=== PATIENT | male | born 1955 | race Caucasian/White ===

== ENCOUNTER 2018-11-02 14:20 | Emergency (ER) | payer OTHER, MEDICARE ==
--- OUTSIDE RECORDS SUMMARY | 2018-11-02 14:27 | XMS REPORT ---
:1955 Author Organization [facility] Address [address] [place] [address] Care Team Providers Name Role Phone Unavailable Unavailable Unavailable Payers Payer Name Policy Type Policy Number Effective Date Expiration Date Problems This patient has no known problems. Allergies, Adverse Reactions, Alerts Allergy Allergy Status Severity Reaction(s) Onset Inactive Treating Comments Name Type Date Date Clinician No Known DA Active U 2018-10 Allergies -18 00:00:0 0 Medications This patient has no known medications. Results Test Description Test Time Test Comments Text Results Atomic Results Result Comments - XR CHEST 1 V 2018-10-31 09:46:00 Name: BOO MARTIN [facility] : 1955 Age/S: 63 / M [id number] Unit #: [id number] Loc: [place] [address] Phys: Kai Tamayo MD Acct: [id number] Dis Date: Status: [facility] PHONE #: [phone] Exam Date: 10/31/2018 0933 FAX #: Reason: PRE-OP EXAMS: CPT: [id number] XR CHEST 1 V 23256 Fluoro Time: DAP (Gy m2): Air Kerma (mGy): Chest Radiograph History: PRE-OP Comparison: None at this time Location: R16 A single frontal view of the chest is submitted. The heart is within normal limits in size. Pulmonary vasculature is unremarkable. The visualized lung hoffmann appear to be free of disease. The bones appear unremarkable. IMPRESSION: There is no radiographic evidence of acute cardiopulmonary disease. at 0946 Reported and signed by: Nazario Meraz M.D. CC: Jase Estrada MD; Kai Tamayo MD PAGE 1 Signed Report Name: BOO MARTIN [place] : 1955 Age/S: 63 / M [id number] Unit #: [id number] Loc: [place] [address] Phys: Kai Tamayo MD Acct: [id number] Dis Date: Status: REG [facility] [place] PHONE #: [phone] Exam Date: 10/31/2018 0933 FAX #: Reason: PRE-OP EXAMS: CPT: [id number] XR CHEST 1 V 44405 Fluoro Time: DAP (Gy m2): Air Kerma (mGy): <Continued> Technologist: Harriet Neff, RT(R) Trnscb Date/Time: 10/31/2018 (0946) [email or web address] Orig Print D/T: S: 10/31/2018 (0949) PAGE 2 Signed Report
--- NOTE | 2018-11-02 15:46 | ER ---
Nurse's Notes [facility] Name: Nic Ewing Age: 63 yrs Sex: Male : 1955 Arrival Date: 11/02/2018 Time: 14:28 Bed 20 Private MD: Jase Estrada Diagnosis: Mechanical complication of urinary (indwelling) catheter Presentation: 11/02 14:32 Presenting complaint: Blood in catheter this morning, decreased urinary output this hb afternoon. Pt is 3 days s/p hernia and bladder sx. Transition of care: patient was not received from another setting of care. Onset of symptoms was November 02, 2018. Risk Assessment: Do you want to hurt yourself or someone else? Patient reports no desire to harm self or others. Care prior to arrival: None. 14:32 Method Of Arrival: Ambulatory hb 14:32 Acuity: ALMA 3 hb 14:54 Initial Sepsis Screen: Does the patient meet any 2 criteria? No. Patient's initial tw2 sepsis screen is negative. Does the patient have a suspected source of infection? No. Patient's initial sepsis screen is negative. Historical: - Allergies: 14:33 No Known Allergies; hb - Immunization history:: Adult Immunizations up to date. - Social history:: Smoking status: Patient/guardian denies using tobacco. - Ebola Screening: : No symptoms or risks identified at this time. Screenin:54 Abuse screen: Denies threats or abuse. Nutritional screening: No deficits noted. tw2 Tuberculosis screening: No symptoms or risk factors identified. Fall Risk Secondary diagnosis (15 points) impaired mobility. Assessment: 14:35 General: Appears in no apparent distress. slender, Behavior is calm, cooperative, tw2 appropriate for age. Pain: Denies pain. Neuro: Level of Consciousness is awake, alert, obeys commands, Oriented to person, place, time, situation. Cardiovascular: Patient's skin is warm and dry. Respiratory: Airway is patent Respiratory effort is even, unlabored, Respiratory pattern is regular, symmetrical. : man catheter in place with drainage bag. 15:57 Reassessment: Patient appears in no apparent distress at this time. No changes from tw2 previously documented assessment. Patient and/or family updated on plan of care and expected duration. Pain level reassessed. Patient is alert, oriented x 3, equal unlabored respirations, skin warm/dry/pink. Vital Signs: 14:33 BP 161 / 83; Pulse 72; Resp 16; Temp 97.9; Pulse Ox 98% ; Weight 81.65 kg; Height 5 ft. hb 10 in. (177.80 cm); Pain 6/10; 15:57 BP 148 / 84; Pulse 61; Resp 18; Pulse Ox 98% on R/A; tw2 14:33 Body Mass Index 25.83 (81.65 kg, 177.80 cm) hb ED Course: 14:28 Patient arrived in ED. mr 14:28 Jase Estrada MD is Private Physician. mr 14:32 Triage completed. hb 14:33 Arm band placed on right wrist. hb 14:35 Bed in low position. Call light in reach. Side rails up X2. patrol commander on. Pulse tw2 ox on. NIBP on. 14:54 Briseyda Jensen RN is Primary Nurse. tw2 15:09 Florencio Rice PA is PHCP. jr8 15:09 Daniel Bray MD is Attending Physician. jr8 15:[address] man catheter with 10 ml ns, pts urine started flowing into tw2 drainage container at this time, provider at bedside. 15:58 No provider procedures requiring assistance completed. Patient did not have IV access tw2 during this emergency room visit. Administered Medications: No medications were administered Output: 15:58 Urine: 250ml (Man); Total: 250ml. tw2 Outcome: 15:45 Discharge ordered by . jr8 15:58 Discharged to home ambulatory. tw2 15:58 Condition: stable 15:58 Discharge instructions given to patient, Instructed on discharge instructions, follow up and referral plans. man care and drainage Demonstrated understanding of instructions, follow-up care. 15:59 Patient left the ED. tw2 Signatures: Magaly Feng mr Florencio Rice PA PA jr8 Gabriella Acuña RN RN Briseyda Jensen RN RN tw2
--- NOTE | 2018-11-02 15:46 | EDPHYS ---
Physician Documentation [facility] Name: Nic Ewing Age: 63 yrs Sex: Male : 1955 Arrival Date: 11/02/2018 Time: 14:28 Bed 20 Private MD: Jase Estrada ED Physician Daniel Bray HPI: 11/02 15:28 This 63 yrs old Male presents to ER via Ambulatory with complaints of Blood jr8 In Catheter. 15:28 The patient presents with a Man catheter problem, is not draining. Onset: The jr8 symptoms/episode began/occurred acutely, 3 hour(s) ago. Modifying factors: The symptoms are alleviated by nothing, the symptoms are aggravated by nothing. Associated signs and symptoms: Pertinent positives: hematuria, catheter not draining, Pertinent negatives: abdominal pain, constipation, diarrhea, fever, nausea, vomiting. Severity of symptoms: At their worst the symptoms were mild, in the emergency department the symptoms are unchanged. The patient has not experienced similar symptoms in the past. The patient has not recently seen a physician. Patient had hernia repair surgery Wednesday at [facility], which caused injury to bladder that was sutured and man catheter was placed at that time. Patient reports blood in catheter since surgery, now not draining x 2-3 hours. Reports suprapubic pressure and fullness but denies abdominal pain, N/V/D, or fever. Historical: - Allergies: 14:33 No Known Allergies; hb - Immunization history:: Adult Immunizations up to date. - Social history:: Smoking status: Patient/guardian denies using tobacco. - Ebola Screening: : No symptoms or risks identified at this time. ROS: 15:28 Constitutional: Negative for fever, chills, and weight loss, Cardiovascular: Negative jr8 for chest pain, palpitations, and edema, Respiratory: Negative for shortness of breath, cough, wheezing, and pleuritic chest pain, Back: Negative for injury and pain, MS/Extremity: Negative for injury and deformity, Skin: Negative for injury, rash, and discoloration, Neuro: Negative for headache, weakness, numbness, tingling, and seizure. 15:28 Abdomen/GI: Positive for constipation, Negative for abdominal pain, nausea, vomiting, and diarrhea. 15:28 : Positive for urinary retention, suprapubic fullness, Negative for flank pain, penile discharge, penile pain, testicular pain Exam: 15:28 Constitutional: This is a well developed, well nourished patient who is awake, alert, jr8 and in no acute distress. Cardiovascular: Regular rate and rhythm with a normal S1 and S2. No gallops, murmurs, or rubs. Normal PMI, no JVD. No pulse deficits. Respiratory: Lungs have equal breath sounds bilaterally, clear to auscultation and percussion. No rales, rhonchi or wheezes noted. No increased work of breathing, no retractions or nasal flaring. Back: No spinal tenderness. No costovertebral tenderness. Full range of motion. Skin: Warm, dry with normal turgor. Normal color with no rashes, no lesions, and no evidence of cellulitis. MS/ Extremity: Pulses equal, no cyanosis. Neurovascular intact. Full, normal range of motion. Neuro: Awake and alert, GCS 15, oriented to person, place, time, and situation. Cranial nerves II-XII grossly intact. Motor strength 5/5 in all extremities. Sensory grossly intact. Cerebellar exam normal. Normal gait. 15:28 Abdomen/GI: Inspection: abdomen appears normal, lap abdominal incisions closed with surgical glue, well appearing, no erythema or drainage, Bowel sounds: normal, Palpation: abdomen is soft and non-tender, in all quadrants, mild bladder distension. 15:28 : CVA tenderness, is absent, Male external genitalia: normal, Bladder: distension, that is mild, a man is noted, to gravity drainage, not draining. Vital Signs: 14:33 BP 161 / 83; Pulse 72; Resp 16; Temp 97.9; Pulse Ox 98% ; Weight 81.65 kg; Height 5 ft. hb 10 in. (177.80 cm); Pain 6/10; 15:57 BP 148 / 84; Pulse 61; Resp 18; Pulse Ox 98% on R/A; tw2 14:33 Body Mass Index 25.83 (81.65 kg, 177.80 cm) hb Procedures: 15:40 Bladder irrigated via Man with 10 cc normal saline returned yellow urine Patient jr8 tolerated well. MDM: 15:09 Patient medically screened. jr8 15:40 Differential diagnosis: urinary retention, Man catheter problem. Data reviewed: vital jr8 signs, nurses notes, and as a result, I will discharge patient. Data interpreted: Pulse oximetry: on room air is 99 %. Interpretation: normal. Counseling: I had a detailed discussion with the patient and/or guardian regarding: the historical points, exam findings, and any diagnostic results supporting the discharge/admit diagnosis, the need for outpatient follow up, a general surgeon. Response to treatment: the patient's symptoms have resolved after treatment, man draining well, and as a result, I will discharge patient. ED course: Following irrigation, man catheter draining clear yellow urine with small amount of tiny clots, patient reports relief. Patient scheduled to follow up with surgeon Wednesday, instructed to follow up as scheduled and return to ER PRN for any additional complications. 11/02 15:09 Order name: Bladder Scanner; Complete Time: 15:31 jr8 11/02 15:32 Order name: Misc. Order: irrigate man; Complete Time: 15:40 tw2 Administered Medications: No medications were administered Disposition: 17:21 Co-signature as Attending Physician, Daniel Bray MD. rn Disposition: 11/02/18 15:45 Discharged to Home. Impression: Mechanical complication of urinary (indwelling) catheter. - Condition is Stable. - Discharge Instructions: Man Catheter Care, Adult. - Medication Reconciliation Form, Thank You Letter, Antibiotic Education, Prescription Opioid Use form. - Follow up: Private Physician; When: 2 - 3 days; Reason: Recheck today's complaints, Continuance of care, Re-evaluation by your physician. - Problem is new. - Symptoms are resolved. Signatures: Daniel Bray MD MD rn Roszak, Josh, PA PA jr8 Gabriella Acuña RN RN hb Wise, Tara, RN RN tw2 Corrections: (The following items were deleted from the chart) 15:59 15:45 11/02/2018 15:45 Discharged to Home. Impression: Mechanical complication of tw2 urinary (indwelling) catheter. Condition is Stable. Forms are Medication Reconciliation Form, Thank You Letter, Antibiotic Education, Prescription Opioid Use. Follow up: Private Physician; When: 2 - 3 days; Reason: Recheck today's complaints, Continuance of care, Re-evaluation by your physician. Problem is new. Symptoms are resolved. jr8
== END 2018-11-02 15:59 | disposition home or self-care (01) ==
LOC: ER 14:20
DX: T83.091A Other mechanical complication of indwelling urethral catheter, initial encounter (principal)
CPT/HCPCS: 51700; 99284

== ENCOUNTER 2018-11-04 21:23 | Emergency (ER) | payer OTHER, MEDICARE ==
--- NOTE | 2018-11-04 23:35 | ER ---
Nurse's Notes [facility] Name: Nic Ewing Age: 63 yrs Sex: Male : 1955 Arrival Date: 11/04/2018 Time: 21: Bed 30 Private MD: Jase Estrada Diagnosis: Essential (primary) hypertension Presentation: 11/04 21:27 Presenting complaint: Patient states: He was at home and started to feel light headed, aj1 so he checked his blood pressure and it was 196/107. Reports that he had a hernia repair on Wednesday and they his bladder was lacerated, so he has a catheter. Reports he was seen here 2 days ago for blood in his urine but that has resolved now. Denies pain. Transition of care: patient was not received from another setting of care. Onset of symptoms was November 04, 2018. Risk Assessment: Do you want to hurt yourself or someone else? Patient reports no desire to harm self or others. Initial Sepsis Screen: Does the patient meet any 2 criteria? No. Patient's initial sepsis screen is negative. Does the patient have a suspected source of infection? No. Patient's initial sepsis screen is negative. Care prior to arrival: None. 21:27 Method Of Arrival: Ambulatory aj1 21:27 Acuity: ALMA 3 aj1 Triage Assessment: 21:30 General: Appears in no apparent distress. comfortable, Behavior is calm, cooperative, aj1 appropriate for age. Pain: Denies pain. Neuro: Level of Consciousness is awake, alert, obeys commands, Oriented to person, place, time, situation. Cardiovascular: Patient's skin is warm and dry. Respiratory: Airway is patent Respiratory effort is even, unlabored, Respiratory pattern is regular, symmetrical. Historical: - Allergies: 21:30 No Known Allergies; aj1 - Home Meds: 21:30 Tylenol #3 Oral [Active]; Motrin Oral [Active]; aj1 - PMHx: 21:30 None; aj1 - PSHx: 21:30 Hernia repair; aj1 - Immunization history:: Flu vaccine is up to date. - Social history:: Smoking status: Patient/guardian denies using tobacco. - Ebola Screening: : Patient denies travel to an Ebola-affected area in the 21 days before illness onset. Screenin:40 Abuse screen: Denies threats or abuse. Denies injuries from another. Nutritional ca1 screening: No deficits noted. Tuberculosis screening: No symptoms or risk factors identified. Fall Risk None identified. Assessment: 21:40 General: Appears in no apparent distress. comfortable, Behavior is calm, cooperative, ca1 appropriate for age. Pain: Denies pain. Neuro: Level of Consciousness is awake, alert, obeys commands, Oriented to person, place, time, situation. Cardiovascular: Heart tones S1 S2 present Capillary refill < 3 seconds Patient's skin is warm and dry. Respiratory: Airway is patent Respiratory effort is even, unlabored, Respiratory pattern is regular, symmetrical, Breath sounds are clear bilaterally. GI: Abdomen is round non-distended, Bowel sounds present X 4 quads. Abd is soft and non tender X 4 quads. : Lopez in place to gravity drainage Urine is cloudy. EENT: No deficits noted. No signs and/or symptoms were reported regarding the EENT system. Derm: Skin is intact, is healthy with good turgor, Skin is pink, warm \T\ dry. Musculoskeletal: Circulation, motion, and sensation intact. Capillary refill < 3 seconds, Range of motion: intact in all extremities. 22:43 Reassessment: Bladder scanned. Notified provider. ca1 22:46 Reassessment: Patient appears in no apparent distress at this time. Patient and/or ca1 family updated on plan of care and expected duration. Pain level reassessed. Patient is alert, oriented x 3, equal unlabored respirations, skin warm/dry/pink. 23:14 Reassessment: Patient appears in no apparent distress at this time. Patient is alert, ca1 oriented x 3, equal unlabored respirations, skin warm/dry/pink. Bladder Irrigation done. Pt tolerated well. Vital Signs: 21:30 BP 163 / 98; Pulse 59; Resp 18; Temp 97.8; Pulse Ox 100% on R/A; Weight 81.65 kg (R); aj1 Height 5 ft. 10 in. (177.80 cm) (R); Pain 0/10; 22:46 BP 146 / 93; Pulse 64; Resp 16 S; Pulse Ox 98% on R/A; ca1 23:32 BP 163 / 93; Pulse 62; Resp 17 S; Pulse Ox 100% on R/A; ca1 23:49 BP 138 / 91; Pulse 66; Resp 16; Temp 98; Pulse Ox 99% on R/A; rv 21:30 Body Mass Index 25.83 (81.65 kg, 177.80 cm) aj ED Course: 21:26 Patient arrived in ED. mr 21:28 Jase Estrada MD is Private Physician. mr 21:29 Triage completed. aj1 21:30 Arm band placed on Patient placed in an exam room. aj1 21:33 Douglas Amos NP is PHCP. pm1 21:33 Daniel Bray MD is Attending Physician. pm1 21:40 Patient has correct armband on for positive identification. Bed in low position. Call ca1 light in reach. Side rails up X 1. Pulse ox on. NIBP on. Warm blanket given. 21:40 No provider procedures requiring assistance completed. ca1 22:20 Samantha Rubio, MARICRUZ is Primary Nurse. ca1 23:48 Patient did not have IV access during this emergency room visit. Bladder irrigated via rv Lopez with 1 liter normal saline returned clear fluid Patient tolerated well. Administered Medications: No medications were administered Outcome: 23:34 Discharge ordered by . pm1 23:49 Discharged to home ambulatory. rv 23:49 Condition: good 23:49 Discharge instructions given to patient, Instructed on discharge instructions, follow up and referral plans. Demonstrated understanding of instructions, follow-up care. 23:50 Patient left the ED. rv Signatures: Jo Ann Marcelo, RN RN aj1 Magaly Feng mr Douglas Amos, LOYD MANAGER [employer] pm1 Carlo Wolfe RN RN rv Samantha uRbio RN RN ca1
--- NOTE | 2018-11-04 23:35 | EDPHYS ---
Physician Documentation [facility] Name: Nic Ewing Age: 63 yrs Sex: Male : 1955 Arrival Date: 11/04/2018 Time: 21:26 Bed 30 Private MD: Jase Estrada ED Physician Daniel Bray HPI: 11/04 22:10 This 63 yrs old Male presents to ER via Ambulatory with complaints of High pm1 Blood Pressure. 22:10 The patient has elevated blood pressure and discovered this at home, with a home pm1 device. Onset: The symptoms/episode began/occurred today. Associated signs and symptoms: Pertinent positives: headache, Pertinent negatives: chest pain, nausea, vomiting. Severity of symptoms: in the emergency department the blood pressure is improved. The patient has not experienced similar symptoms in the past. The patient has been recently seen by a physician: Had hernia repair with accidental laceration of bladder. Patient currently has a man catheter. Patient is concerned that there might be a urinary tract infection because of possible decrease in flow. No abdominal pain or fever. Historical: - Allergies: 21:30 No Known Allergies; aj1 - Home Meds: 21:30 Tylenol #3 Oral [Active]; Motrin Oral [Active]; aj1 - PMHx: 21:30 None; aj1 - PSHx: 21:30 Hernia repair; aj1 - Immunization history:: Flu vaccine is up to date. - Social history:: Smoking status: Patient/guardian denies using tobacco. - Ebola Screening: : Patient denies travel to an Ebola-affected area in the 21 days before illness onset. ROS: 22:10 Constitutional: Negative for fever, chills, and weight loss, Eyes: Negative for injury, pm1 pain, redness, and discharge, ENT: Negative for injury, pain, and discharge, Neck: Negative for injury, pain, and swelling, Cardiovascular: Negative for chest pain, palpitations, and edema, Respiratory: Negative for shortness of breath, cough, wheezing, and pleuritic chest pain, Abdomen/GI: Negative for abdominal pain, nausea, vomiting, diarrhea, and constipation, Back: Negative for injury and pain, : Negative for injury, bleeding, discharge, and swelling, MS/Extremity: Negative for injury and deformity, Skin: Negative for injury, rash, and discoloration, Neuro: Negative for headache, weakness, numbness, tingling, and seizure. Exam: 22:10 Constitutional: This is a well developed, well nourished patient who is awake, alert, pm1 and in no acute distress. Head/Face: Normocephalic, atraumatic. Neck: Trachea midline, no thyromegaly or masses palpated, and no cervical lymphadenopathy. Supple, full range of motion without nuchal rigidity, or vertebral point tenderness. No Meningismus. Chest/axilla: Normal chest wall appearance and motion. Nontender with no deformity. No lesions are appreciated. Cardiovascular: Regular rate and rhythm with a normal S1 and S2. No gallops, murmurs, or rubs. Normal PMI, no JVD. No pulse deficits. Respiratory: Lungs have equal breath sounds bilaterally, clear to auscultation and percussion. No rales, rhonchi or wheezes noted. No increased work of breathing, no retractions or nasal flaring. Abdomen/GI: Soft, non-tender, with normal bowel sounds. No distension or tympany. No guarding or rebound. No evidence of tenderness throughout. Back: No spinal tenderness. No costovertebral tenderness. Full range of motion. Skin: Warm, dry with normal turgor. Normal color with no rashes, no lesions, and no evidence of cellulitis. MS/ Extremity: Pulses equal, no cyanosis. Neurovascular intact. Full, normal range of motion. 22:10 Neuro: Orientation: is normal, Motor: is normal, moves all fours. Vital Signs: 21:30 BP 163 / 98; Pulse 59; Resp 18; Temp 97.8; Pulse Ox 100% on R/A; Weight 81.65 kg (R); aj1 Height 5 ft. 10 in. (177.80 cm) (R); Pain 0/10; 22:46 BP 146 / 93; Pulse 64; Resp 16 S; Pulse Ox 98% on R/A; ca1 23:32 BP 163 / 93; Pulse 62; Resp 17 S; Pulse Ox 100% on R/A; ca1 23:49 BP 138 / 91; Pulse 66; Resp 16; Temp 98; Pulse Ox 99% on R/A; rv 21:30 Body Mass Index 25.83 (81.65 kg, 177.80 rosalina) aj1 MDM: 21:48 Patient medically screened. pm1 22:10 ED course: Patient states that he is no longer concerned about his blood pressure. He pm1 is concerned that he might have a urinary tract infection because he feels like the urine is not flowing as well from his catheter. 22:10 ED course: Bladder scanner 0 mL per nurse. No obstruction present. pm1 23:33 Data reviewed: vital signs. Data interpreted: Pulse oximetry: on room air is 100 %. pm1 Interpretation: normal. Counseling: I had a detailed discussion with the patient and/or guardian regarding: the historical points, exam findings, and any diagnostic results supporting the discharge/admit diagnosis, lab results, the need for outpatient follow up, to return to the emergency department if symptoms worsen or persist or if there are any questions or concerns that arise at home. 11/04 23:28 Order name: Urine Dipstick--Ancillary (enter results) [facility] 11/04 23:29 Order name: Urine Dipstick-Ancillary; Complete Time: 01:31 EDIN 11/04 22:10 Order name: Bladder Scanner; Complete Time: 22:34 pm1 11/04 22:10 Order name: Misc. Order: Irrigate of bladder; Complete Time: 23:30 pm1 11/04 22:26 Order name: Urine Dipstick-Ancillary (obtain specimen); Complete Time: 23:30 pm1 Administered Medications: No medications were administered Disposition: 11/05 00:02 Co-signature as Attending Physician, Daniel Bray MD. rn Disposition: 11/04/18 23:34 Discharged to Home. Impression: Essential (primary) hypertension. - Condition is Stable. - Discharge Instructions: Hypertension, How to Take Your Blood Pressure, Ziqt-ra-Ozoe, DASH Eating Plan, Managing Your Hypertension. - Medication Reconciliation Form, Thank You Letter, Antibiotic Education, Prescription Opioid Use form. - Follow up: Emergency Department; When: As needed; Reason: Worsening of condition. Follow up: Private Physician; When: 2 - 3 days; Reason: Recheck today's complaints, Continuance of care, Re-evaluation by your physician. - Problem is new. - Symptoms have improved. Signatures: Dispatcher [employer] [facility] Jo Ann Marcelo RN RN aj1 Daniel Bray MD MD rn Marinas, Patrick, LOYD TRUCK HOPPER pm1 Aiden, Carlo, RN RN rv Corrections: (The following items were deleted from the chart) 11/04 23:50 23:34 11/04/2018 23:34 Discharged to Home. Impression: Essential (primary) rv hypertension. Condition is Stable. Forms are Medication Reconciliation Form, Thank You Letter, Antibiotic Education, Prescription Opioid Use. Follow up: Emergency Department; When: As needed; Reason: Worsening of condition. Follow up: Private Physician; When: 2 - 3 days; Reason: Recheck today's complaints, Continuance of care, Re-evaluation by your physician. Problem is new. Symptoms have improved. pm1
[2018-11-04 23:41] LABS: Urine Blood 2+ (NEG); Urine Glucose NEGATIVE (NEG); Urine Protein NEGATIVE (NEG); Urine Specific Gravity 1.015 (1.005-1.030); Urine pH 5.5 (5.0-7.0)
== END 2018-11-04 23:50 | disposition home or self-care (01) ==
LOC: ER 21:23
DX: I10 Essential (primary) hypertension (principal)
CPT/HCPCS: 51700; 81003; 99284

== ENCOUNTER 2019-07-01 14:02 | Emergency (ER) | payer OTHER, MEDICARE ==
--- OUTSIDE RECORDS SUMMARY | 2019-07-01 14:05 | XMS REPORT ---
:1955 [facility] [address] [place] [address] Care Team Providers Name Role Phone Unavailable [...] Results Atomic Results Result Comments - XR CYSTOURETHRO VOIDING 2018-11-07 11:41:00 Name: BOO MARTIN [facility] : 1955 Age/S: 63 / M [address] [facility] Unit #: [id number] Loc: [place] [address] Phys: Kai Tamayo MD Acct: [id number] Dis Date: Status: REG CLI PHONE #: [phone] Exam Date: 11/07/2018 1110 FAX #: Reason: UNSP COMPLICATION OF PROCEDURE EXAMS: CPT: [id number] XR CYSTOURETHRO VOIDING [id number] Fluoro Time: 24 DAP (Gy m2): Air Kerma (mGy): 17.95 Examination: VCUG Location code: S17 Comparison: None Discussion: Clinical history is remarkable for bladder injury. Cysto-Conray was instilled under gravity dependent method through the patient's existing Lopez catheter. There is adequate opacification of the bladder, there is no evidence of extravasation. No vesicoureteral reflux present. At the end of the procedure, the Lopez catheter was removed. I was present during this procedure for a total of 10 minutes. 24 seconds fluoroscopic time utilized. Impression: No evidence of bladder extravasation, Lopez catheter was removed following the procedure. at 1141 Reported and signed by: Malick Abreu M.D. CC: Jase Estrada MD; Kai Tamayo MD PAGE 1 Signed Report Name: BOO MARTIN [place] : 1955 Age/S: 63 / M [address] [address] Unit #: [id number] Loc: [place] [address] Phys: Kai Tamayo MD Acct: [id number] Dis Date: Status: REG CLI PHONE #: [phone] Exam Date: 11/07/2018 1110 FAX #: Reason: UNSP COMPLICATION OF PROCEDURE EXAMS: CPT: [id number] XR CYSTOURETHRO VOIDING [id number] Fluoro Time: 24 DAP (Gy m2): Air Kerma (mGy): 17.95 <Continued> Technologist: Joni Romo, RT(R)(CT); ... Trnscb Date/Time: 11/07/2018 (1141) [email or web address] Orig Print D/T: S: 11/07/2018 (1144) PAGE 2 Signed Report - XR CHEST 1 V 2018-10-31 09:46:00 Name: BOO MARTIN [place] : 1955 Age/S: 63 / M [address] [address] Unit #: [id number] Loc: [place] [address] Phys: Kai Tamayo MD Acct: [id number] Dis Date: Status: REG SD PHONE #: [phone] Exam Date: 10/31/2018 0933 FAX #: Reason: PRE-OP EXAMS: CPT: [id number] XR CHEST 1 V 44576 Fluoro Time: DAP (Gy m2): Air Kerma [...] PAGE 1 Signed Report Name: BOO MARTIN : 1955 Age/S: 63 / M [address] [address] Unit #: [id number] Loc: [place] [address] Phys: Kai Tamayo MD Acct: [id number] Dis Date: Status: REG [facility] PHONE #: [phone] Exam Date: 10/31/2018 0933 FAX #: Reason: PRE-OP EXAMS: CPT: [id number] XR CHEST 1 V 37588 Fluoro Time: DAP (Gy m2): Air Kerma (mGy): <Continued> Technologist: Harriet Neff RT(R) Trnscb Date/Time: 10/31/2018 (945) [email or web address] Orig Print D/T: S: 10/31/2018 (3549) PAGE 2 Signed Report
[2019-07-01 15:40] LABS: Absolute Lymphocytes (CBC) 0.7 K/uL (0.7-4.9); Basophils % 0.2 % (0-1.3); Hematocrit 40.8 % (39.6-49.0); Lymphocytes % 12.5 % (15.3-44.8); MPV 8.7 fL (7.6-11.3); RBC Red Blood Cell Count 4.42 M/uL (4.33-5.43)
[2019-07-01 15:54] LABS: ALT/SGPT 18 U/L (12-78); AST/SGOT 14 U/L (15-37); Albumin 3.3 g/dL (3.4-5.0); Alkaline Phosphatase 69 U/L (45-117); BUN Blood Urea Nitrogen 30 mg/dL (7-18); Bicarbonate 25 mmol/L (21-32); Bilirubin Direct 0.1 mg/dL (0-0.2); Bilirubin Total 0.5 mg/dL (0.2-1.0); Glucose Level 91 mg/dL (74-106); Magnesium 2.1 mg/dL (1.8-2.4); Potassium 4.2 mmol/L (3.5-5.1); Protein, Total 6.7 g/dL (6.4-8.2); Sodium Level 142 mmol/L (136-145); Troponin (Emerg Dept Use Only) < 0.02 ng/mL (0.0-0.045)
[2019-07-01] MEDS ORDERED: NA CHLORIDE 0.9% 500 ML ONE (16:06)
--- NOTE | 2019-07-01 16:15 | RAD REPORT ---
EXAM DESCRIPTION: Neela Single View07/01/2019 3:55 pm CLINICAL HISTORY: Chest pain COMPARISON: 2017 FINDINGS: The lungs appear clear of acute infiltrate. The heart is normal size IMPRESSION: No acute abnormalities displayed
--- NOTE | 2019-07-01 17:59 | ER ---
Nurse's Notes [facility] Name: Nic Ewing Age: 63 yrs Sex: Male : 1955 Arrival Date: 07/01/2019 Time: 14:05 Bed 17 Private MD: Diagnosis: Chest pain, unspecified Presentation: 06/30 14:13 Chief complaint: Patient states: Chest pain for couple of days, getting worse past few ca1 days. Reports fatigue and SOB with chest pain. Denies congestion and fever. Reports cough for about 4 months when doing work. Coronavirus screen: Patient reports a subjective fever or greater than 100.4F, or cough, or shortness of breath, or difficulty breathing. Surgical mask placed on patient. Patient moved to private room, placed in contact and droplet isolation with eye protection until further assessment. Patient denies travel on a cruise ship or to a country the [facility] currently lists as an affected area. Patient denies contact with known and/or suspected case of COVID-19. Infection Prevention Nurse has been notified of patient in isolation for probable COVID-19. Ebola Screen: Patient negative for fever greater than or equal to 101.5 degrees Fahrenheit, and additional compatible Ebola Virus Disease symptoms Patient denies exposure to infectious person. Patient denies travel to an Ebola-affected area in the 21 days before illness onset. No symptoms or risks identified at this time. Initial Sepsis Screen: Does the patient meet any 2 criteria? No. Patient's initial sepsis screen is negative. Does the patient have a suspected source of infection? No. Patient's initial sepsis screen is negative. Risk Assessment: Do you want to hurt yourself or someone else? Patient reports no desire to harm self or others. Onset of symptoms was July 01, 2019. 14:13 Method Of Arrival: Ambulatory ca1 14:13 Acuity: ALMA 3 ca1 Historical: - Allergies: 14:15 No Known Allergies; ca1 - Home Meds: 14:15 Trazodone Oral [Active]; ca1 - PMHx: 14:15 Hernia; ca1 - PSHx: 14:15 Hernia repair; bladder Surgery; ca1 - Immunization history:: Adult Immunizations up to date, Pneumococcal vaccine is up to date, Flu vaccine is up to date. - Social history:: Smoking status: Patient denies any tobacco usage or history of. Screenin:20 Abuse screen: Denies threats or abuse. Nutritional screening: No deficits noted. rb1 Tuberculosis screening: No symptoms or risk factors identified. Fall Risk None identified. Assessment: 14:20 General: Appears in no apparent distress. comfortable, Behavior is calm, cooperative, rb1 Reports fatigue for Pt. reports that he has insomnia. Started feeling fatigued last Wednesday but it has gotten worse the last couple of days. Denies fever, feeling ill. Pain: Complains of pain in anterior aspect of left upper chest Pain does not radiate. Pain currently is 3 out of 10 on a pain scale. Quality of pain is described as pressure, Pain began Since last Wednesday but it has gotten worse the last couple of days. Neuro: Level of Consciousness is awake, alert, obeys commands, Oriented to person, place, time, situation. Cardiovascular: Capillary refill < 3 seconds is brisk in bilateral fingers. Respiratory: Reports shortness of breath Reports that he has had a cough for the about four months cough that is Airway is patent Respiratory effort is even, unlabored, Respiratory pattern is regular, symmetrical. GI: No signs and/or symptoms were reported involving the gastrointestinal system. : No signs and/or symptoms were reported regarding the genitourinary system. Derm: Skin is pink, warm \T\ dry. 15:20 Reassessment: Patient appears in no apparent distress at this time. No changes from [facility] previously documented assessment. 15:51 Reassessment: Patient states feeling better. rb1 16:20 Reassessment: Patient appears in no apparent distress at this time. Patient and/or rb1 family updated on plan of care and expected duration. Pain level reassessed. Patient is alert, oriented x 3, equal unlabored respirations, skin warm/dry/pink. 17:20 Reassessment: Patient appears in no apparent distress at this time. Pt. ambulated to rb1 the restroom without difficulty. Pt. expressed that he is feeling better and would like to go home. 18:00 Reassessment: Patient appears in no apparent distress at this time. Patient and/or rb1 family updated on plan of care and expected duration. Pain level reassessed. Patient is alert, oriented x 3, equal unlabored respirations, skin warm/dry/pink. Patient states feeling better. Patient states symptoms have improved. Vital Signs: 14:13 BP 130 / 104; Pulse 87; Resp 17 S; Temp 98.1(O); Pulse Ox 100% ; Weight 83.91 kg (R); ca1 Height 5 ft. 10 in. (177.80 cm) (R); Pain 3/10; 15:20 BP 127 / 85; Pulse 83; Resp 20; Pulse Ox 95% on R/A; rb1 16:20 BP 136 / 90; Pulse 84; Resp 19; Pulse Ox 96% ; rb1 17:20 BP 133 / 88; Pulse 87; Resp 17; Pulse Ox 97% on R/A; rb1 18:00 BP 140 / 98; Pulse 79; Resp 18; Pulse Ox 100% ; rb1 14:13 Body Mass Index 26.54 (83.91 kg, 177.80 cm) ca1 ED Course: 14:05 Patient arrived in ED. ag5 14:13 Triage completed. ca1 14:15 Arm band placed on right wrist. ca1 14:17 Erin Beltrán, RN is Primary Nurse. rb1 14:20 Patient has correct armband on for positive identification. Bed in low position. Call rb1 light in reach. Side rails up X 1. monitor tech on. Pulse ox on. NIBP on. Warm blanket given. 14:20 Patient maintains SpO2 saturation greater than 95% on room air. rb1 14:28 Carlos London MD is Attending Physician. kdr 15:50 Inserted saline lock: 20 gauge in right antecubital area, using aseptic technique. rb1 ,using aseptic technique. IV inserted by BEVERLEY Pierce Blood collected. 15:55 XRAY Chest (1 view) In Process Unspecified. EDMS 16:54 Troponin (emerg Dept Use Only) Sent. rb1 18:05 No provider procedures requiring assistance completed. IV discontinued, intact, rb1 bleeding controlled, No redness/swelling at site. Pressure dressing applied. 18:13 Primary Nurse role handed off by Erin Beltrán, RN rb1 18:14 Erin Beltrán, RN is Primary Nurse. rb1 Administered Medications: 16:20 Drug: NS 0.9% 500 ml Route: IV; Rate: bolus; Site: right antecubital; rb1 16:50 Follow up: IV Status: Completed infusion rb1 Outcome: 17:59 Discharge ordered by . kdr 18:05 Patient left the ED. rb1 18:05 Discharged to home ambulatory. rb1 18:05 Condition: stable 18:05 Discharge instructions given to patient, Instructed on discharge instructions, follow up and referral plans. medication usage, Demonstrated understanding of instructions, follow-up care, medications, Prescriptions given X 1. 18:15 Patient left the ED. rb1 Signatures: Dispatcher [employer] EDMS Carlos London MD MD kdr Barber, Rebecca RN RN rb1 Samantha Rubio RN RN ca1 Doris Winston 5
--- NOTE | 2019-07-01 17:59 | EDPHYS ---
Physician Documentation [facility] Name: Nic Ewing Age: 63 yrs Sex: Male : 1955 Arrival Date: 07/01/2019 Time: 14:05 Bed 17 Private MD: ED Physician Carlos London Historical: - Allergies: 06/30 14:15 No Known Allergies; ca1 - Home Meds: 14:15 Trazodone Oral [Active]; ca1 - PMHx: 14:15 Hernia; ca1 - PSHx: 14:15 Hernia repair; bladder Surgery; ca1 - Immunization history:: Adult Immunizations up to date, Pneumococcal vaccine is up to date, Flu vaccine is up to date. - Social history:: Smoking status: Patient denies any tobacco usage or history of. Vital Signs: 14:13 BP 130 / 104; Pulse 87; Resp 17 S; Temp 98.1(O); Pulse Ox 100% ; Weight 83.91 kg (R); ca1 Height 5 ft. 10 in. (177.80 cm) (R); Pain 3/10; 15:20 BP 127 / 85; Pulse 83; Resp 20; Pulse Ox 95% on R/A; rb1 16:20 BP 136 / 90; Pulse 84; Resp 19; Pulse Ox 96% ; rb1 17:20 BP 133 / 88; Pulse 87; Resp 17; Pulse Ox 97% on R/A; rb1 18:00 BP 140 / 98; Pulse 79; Resp 18; Pulse Ox 100% ; rb1 14:13 Body Mass Index 26.54 (83.91 kg, 177.80 cm) ca1 MDM: 17:59 Patient medically screened. [facility] 06/30 14:47 Order name: Basic Metabolic Panel; Complete Time: 16:03 [facility] 06/30 14:47 Order name: CBC with Diff; Complete Time: 16:03 [facility] 06/30 14:47 Order name: LFT's; Complete Time: 16:03 [facility] 06/30 14:47 Order name: Magnesium; Complete Time: 16:03 [facility] 06/30 14:47 Order name: Troponin (emerg Dept Use Only); Complete Time: 16:03 [facility] 06/30 16:41 Order name: Troponin (emerg Dept Use Only) kdr 06/30 14:47 Order name: XRAY Chest (1 view); Complete Time: 16:41 [facility] 06/30 14:47 Order name: EKG; Complete Time: 14:56 kdr 06/30 14:47 Order name: Cardiac monitoring; Complete Time: 15:18 kdr 06/30 14:47 Order name: EKG - Nurse/Tech; Complete Time: 15:18 kdr 06/30 14:47 Order name: IV Saline Lock; Complete Time: 15:25 kdr 06/30 14:47 Order name: Labs collected and sent; Complete Time: 15:26 kdr 06/30 14:47 Order name: O2 Sat Monitoring; Complete Time: 15:18 kdr Administered Medications: 16:20 Drug: NS 0.9% 500 ml Route: IV; Rate: bolus; Site: right antecubital; rb1 16:50 Follow up: IV Status: Completed infusion rb1 Disposition: 07/01/19 17:59 Discharged to Home. Impression: Chest pain, unspecified. - Condition is Stable. - Discharge Instructions: Chest Wall Pain, Iwxc-zr-Lptc, Nonspecific Chest Pain, Vspi-fo-Snqy. - Prescriptions for Ibuprofen 600 mg Oral Tablet - take 1 tablet by ORAL route every 6 hours As needed take with food; 30 tablet. - Medication Reconciliation Form, Thank You Letter form. - Follow up: Private Physician; When: 2 - 3 days; Reason: If symptoms return, Further diagnostic work-up, Recheck today's complaints, Continuance of care, Re-evaluation by your physician. - Problem is new. - Symptoms have improved. Addendum: 07/21/2019 08:21 Addendum: CC: Chest pain, HPI: The patient sates that he has been having chest pain for k dr the past two days. It has been getting worse. He has not had this before and has no other associated s/s ROS: Cosnt; The patient denies fever, chills or weight loss. The patient complains of central chest pressure that has become steadily worse. The patient denies N/v, SOB or diaphoresis. The rest of the 10 point ROS exam was negative, EXAM: WDWN WM NAD, Head/neck negative - no JVD, Chest: normal, Lungs CTAB,Abd soft and NT with BS throughout. Ext FROM w/ no decreased ROM or neuro vascular deficits or findings, Psych: stable no SI/HI, MDM. The patinet remain stable in the ED with improvement/resolution of his symptoms. He was discharged home in stable condition and was happy with the care provided and the plan for discharge and follow-up.. Signatures: Dispatcher [employer] Carlos Hernandez MD MD kdr Barber, Rebecca, RN RN rb1 Ramiro, Samantha RN RN ca1 Corrections: (The following items were deleted from the chart) 03 18:05 17:59 07/01/2019 17:59 Discharged to Home. Impression: Chest pain, unspecified. rb1 Condition is Stable. Forms are Medication Reconciliation Form, Thank You Letter, Antibiotic Education, Prescription Opioid Use. Follow up: Private Physician; When: 2 - 3 days; Reason: If symptoms return, Further diagnostic work-up, Recheck today's complaints, Continuance of care, Re-evaluation by your physician. Problem is new. Symptoms have improved. kdr 18:15 18:05 07/01/2019 17:59 Discharged to Home. Impression: Chest pain, unspecified. rb1 Condition is Stable. Discharge Instructions: Chest Wall Pain, Azfz-rj-Xclm, Nonspecific Chest Pain, Oqlc-gy-Iuko. Prescriptions for Ibuprofen 600 mg Oral Tablet - take 1 tablet by ORAL route every 6 hours As needed take with food; 30 tablet. and Forms are Medication Reconciliation Form, Thank You Letter. Follow up: Private Physician; When: 2 - 3 days; Reason: If symptoms return, Further diagnostic work-up, Recheck today's complaints, Continuance of care, Re-evaluation by your physician. Problem is new. Symptoms have improved. rb1
[2019-07-01 18:11] VITALS: TEMP 98.1
[2019-07-01 18:28] VITALS: BP 140/98; O2SAT 100
--- NOTE | 2019-07-02 08:59 | EKG ---
Test Date: 2019-07-01 Test Time: 14:26:15 Industrial Aerial Installer: TORRES MEASUREMENT RESULTS: Intervals: Rate: 80 MN: 154 QRSD: 84 QT: 362 QTc: 417 Grant: P: 34 MN: 154 QRS: 64 T: 9 INTERPRETIVE STATEMENTS: Normal sinus rhythm Normal ECG No previous ECG available for comparison Electronically Signed On 07-02-19 08:57:44 CDT by Vincent Orozco
== END 2019-07-01 18:15 | disposition home or self-care (01) ==
LOC: ER 14:02
DX: R07.9 Chest pain, unspecified (principal)
CPT/HCPCS: 93005; 85025; 80048; 36415; 83735; 80076; 84484 ×2; 71045; 99285; J7040

== ENCOUNTER 2021-12-06 10:26 | Emergency (ER) | payer OTHER, MEDICARE ==
--- OUTSIDE RECORDS SUMMARY | 2021-12-06 10:29 | XMS REPORT | Continuity of Care Document ---
:1955 Author Organization [facility] t Address [address] [place] [place] [address] Care Team Providers Name Role Phone Diego BACA, Demetra Angulo Primary Care Physician [phone] Khanh Dempsey MD Attending Clinician Julisa ALCANTARA, Elisa Attending Clinician Unavailable Mallory Richmond Attending Clinician DEMETRA IBARRA Attending Clinician Unavailable Diego BACA, Demetra Angulo Attending Clinician [phone] KARTHIK NAVARRETE Attending Clinician Unavailable Payers Payer Name Policy Type Policy Number Effective Date Expiration Date S ource Problems Condition Condition Condition Status Onset Resolution Last Treating Co mments Source Name Details Category Date Date Treatment Clinician Date No No Disease Methodi additional additional st problems problems Hospit a on file on file l Allergies, Adverse Reactions, Alerts Allergy Allergy Status Severity Reaction(s) Onset Inactive Treating Comm ents Source Name Type Date Date Clinician No Known DA Active [facility] 10-27 [facility] Social History Social Habit Start Date Stop Date Quantity Comments Source Exposure to Not sure Amy stephens SARS-CoV-2 (event) Tobacco use and 2021-02-06 2021-02-06 Smokeless tobacco David Dotson exposure 00:00:00 00:00:00 non-user Sex Ass[birth year] At [birth year] [facility] 00:00:00 00:00[facility]00 Hospital Smoking Status Start Date Stop Date Source Never smoked tobacco Amy Wolff old Medications Ordered Filled Start Stop Current Ordering Indication Dosage Frequency Signature Comments Components Source Medication Medication Date Date Medication? Clinician (SIG) Name Name Gladys Yes [id number] 10mL Q.25D Take 10 mL Amy romphen-DM 1-18 by mouth 4 Sey bold (Bromfed 00:00: times DM) 30-2-10 00 daily as MG/5ML oral needed Syrup Guaifenesin Yes [id number] 1{tbl} Take 1 Amy 1200 MG 1-18 tablet by Seybold oral Tablet 00:00: mouth 2 12 Hour 00 times Sustained daily Release Benzonatate Yes [id number] 100mg Q.79102023 Take 1 Amy (Tessalon 1-18 [id number] capsule S eybold Joy) 100 00:00: 3D (100 mg MG oral 00 total) by Capsule mouth 3 times daily as needed for cough methylPREDN Yes [id number] 1{shobha} Take 1 shobha Amy ISolone 4 1-18 by mouth Seybol d MG oral 00:00: See Admin Tablet 00 Instructio Therapy ns Use as Pack directed Trazodone 2020-04 Yes 50mg Take 50 mg Ke lsey HCl 50 MG 0-28 by mouth Seybol d oral Tablet 14:59: nightly 52 Trazodone 2020-04 Yes 50mg Take 50 mg Ke lsey HCl 50 MG 0-28 by mouth Seybol d oral Tablet 14:59: nightly 52 Mupirocin 2020-04 Yes [id number] Apply to Amy (BACTROBAN) 0-28 [id number] affected Se ybold 2 % apply 00:00: area three externally 00 times Ointment daily Mupirocin 2020-04 Yes [id number] Apply to Amy (BACTROBAN) 0-28 [id number] affected Se ybold 2 % apply 00:00: area three externally 00 times Ointment daily Amoxicillin 2020-04- No [id number] 1{tbl} Take 1 Amy -Pot 0-28 11-05 [id number] tablet by Seybold Clavulanate 00:00: 04:59 mouth 2 500-125 MG 00 :00 times oral Tablet daily for 7 days traZODone Yes 50mg QD Take 50 mg Me thodi (DESYREL) 4-[address] 50 MG 11:03: nightly. [facility]osp[facility] tablet 37 l Immunizations Ordered Immunization Filled Immunization Date Status Commen ts Source Name Name Covid-19 Vaccine 2020-05-17 Completed Amy morebold (Azuki (Vozero/Gengibre)), Mrna-lnp, 00:00:00 Stan Protein, Pf, 30mcg/0.3ml,IM Covid-19 Vaccine 2020-05-17 Completed Amy Wall eybold (Azuki (Vozero/Gengibre)), Mrna-lnp, 00:00:00 Stan Protein, Pf, 30mcg/0.3ml,IM Covid-19 Vaccine 2020-04-17 Completed Amy Wall eybold (Moderna), Mrna-lnp, 00:00:00 Stan Protein, Pf, 100 Mcg/0.5ml,IM Covid-19 Vaccine 2020-04-17 Completed Amy morebold (Azuki (Vozero/Gengibre)), Mrna-lnp, 00:00:00 Stan Protein, Pf, 30mcg/0.3ml,IM Covid-19 Vaccine 2020-04-17 Completed Amy Wall eybold (Moderna), Mrna-lnp, 00:00:00 Stan Protein, Pf, 100 Mcg/0.5ml,IM Covid-19 Vaccine 2020-04-17 Completed Amy morebold (Azuki (Vozero/Gengibre)), Mrna-lnp, 00:00:00 Stan Protein, Pf, 30mcg/0.3ml,IM Pneumococcal Vaccine, 2020-03-28 Completed Aguila sey Seybold Polysaccharide 00:00:00 Pneumococcal Vaccine, 2020-03-28 Completed Aguila sey Seybold Polysaccharide 00:00:00 Influenza Virus 2020-02-07 Completed Amy Se ybold Vaccine, Quadrivalent, 00:00:00 High Dose, Age 65 And Up Influenza Virus 2020-02-07 Completed Amy Se ybold Vaccine, High Dose, 00:00:00 Age 65 And Up Influenza Virus 2020-02-07 Completed Amy Se ybold Vaccine, Quadrivalent, 00:00:00 High Dose, Age 65 And Up Influenza Virus 2020-02-07 Completed Amy Se ybold Vaccine, High Dose, 00:00:00 Age 65 And Up Pneumococcal Vaccine, 2019-03-21 Completed Aguila sey Seybold Conjugate 13 00:00:00 Pneumococcal Vaccine, 2019-03-21 Completed Aguila sey Seybold Conjugate 13 00:00:00 Vital Signs Vital Name Observation Time Observation Value Comments Source Systolic blood pressure 2021-02-06 19:59:00 126 mm[Hg] Amy Seybold Diastolic blood 2021-02-06 19:59:00 58 mm[Hg] Kelse y Seybold pressure Heart rate 2021-02-06 19:59:00 75 /min Amy S eybold Body temperature 2021-02-06 19:59:00 37 Yazmin Edith ey Seybold Respiratory rate 2021-02-06 19:59:00 14 /min Edith ey Seybold Body height 2021-02-06 19:59:00 177.8 cm Amy S eybold Body weight 2021-02-06 19:59:00 80.287 kg Amy S eybold BMI 2021-02-06 19:59:00 25.40 kg/m2 Amy S argenisbold Procedures This patient has no known procedures. Plan of Care Planned Activity Planned Date Details Comments Source Future Scheduled 2021-12-02 HEPATITIS B VACCINES Met [facility] Test 22:04:22 (1 of 3 - 3-dose series) [code = HEPATITIS B VACCINES (1 of 3 - 3-dose series)] Future Scheduled 2021-12-02 SHINGLES VACCINES (1 Met [facility] Test 22:04:22 of 2) [code = SHINGLES VACCINES (1 of 2)] Future Scheduled 2021-12-02 COLONOSCOPY SCREENING [facility] Test 22:04:22 [code = COLONOSCOPY SCREENING] Future Scheduled 2021-12-02 COVID-19 VACCINE (3 - [facility] Test 22:04:22 Booster for Pfizer series) [code = COVID-19 VACCINE (3 - Booster for Pfizer series)] Future Scheduled 2021-12-02 INFLUENZA VACCINE Method [facility] Test 22:04:22 [code = INFLUENZA VACCINE] Encounters Start End Encounter Admission Attending Care Care Encounter Source Date/Time Date/Time Type Type Clinicians Facility Department ID 2021-10-20 Outpatient [facility] [id number] [place] 10:45:54 [id number] Health 2021-10-172021-10-17 Transcribe Ke, 1.2.840.1 [id number] Methodi 00:00:00 00:00:00 Orders [address]1.[address] 3.430.2.7 Hospit a .3.268273 l .8 2021-09-05 2021-09-05 Telephone Julisa, 1.2.840.1 [id number] Methodi 00:00:00 00:00:[address] 3.430.2.7 Hospit a .3.414882 l .8 2021-08-25 2021-08-25 Abstract Susyjuliadustin, 1.2.840.1 [id number] [id number] Methodi 00:00:00 00:00:[address] 3.430.2.7 Hospit a .3.620549 l .8 2021-04-29 2021-04-29 Telemedici [facility] 1.2.840.114 [id number] Amy 13:30:00 13:40:08 ne Mallory Braun 350.1.13.13 Se ybold 1.2.7.2.686 [id number] 2021-04-16 2021-04-16 Outpatient AMY IABRRA [id number] Amy 00:00:00 00:00:00 DEMETRA stephens 2021-02-06 2021-02-06 Office [facility] 1.2.840.114 [id number] Amy 14:54:42 15:24:42 Visit Demetra Braun 350.1.13.13 Se ybold Somogyi 1.2.7.2.686 [id number] 2020-12-30 2020-12-30 Documentat Julisa 1.2.840.1 [id number] Methodi 00:00:00 00:00:00 ion Elisa 93566.1.[address] 3.430.2.7 Hospit a .3.747606 l .8 2020-08-08 2020-08-08 Outpatient NAVARRETE, [facility] [id number] 00:00:00 00:00:00 KARTHIK 445 Method i 2020-08-08 2020-08-08 Outpatient NAVARRETE, [facility] [id number] 00:00:00 00:00:00 KARTHIK 181 Method i 2020-08-08 2020-08-08 Outpatient NAVARRETE, [facility] [id number] 00:00:00 00:00:00 KARTHIK 258 Method i 2020-08-07 2020-08-07 Outpatient NAVARRETE, [facility] [id number] 00:00:00 00:00:00 KARTHIK 391 Method i 2020-08-07 2020-08-07 Outpatient NAVARRETE, [facility] [id number] [address] 00:00:00 00:00:00 KARTHIK 567 Method i 2020-08-07 2020-08-07 Outpatient NAVARRETE, [facility] [id number] [address] 00:00:00 00:00:00 KARTHIK 568 Method i 2020-08-07 2020-08-07 Outpatient NAVARRETE, [facility] [id number] 00:00:00 00:00:00 KARTHIK 861 Method i 2020-08-07 2020-08-07 Outpatient NAVARRETE, [facility] [id number] [address] 00:00:00 00:00:00 KARTHIK 392 Method i 2020-08-07 2020-08-07 Outpatient NAVARRETE, [facility] [id number] 00:00:00 00:00:00 KARTHIK 547 Method i 2020-08-07 2020-08-07 Outpatient NAVARRETE, [facility] [id number] 00:00:00 00:00:00 KARTHIK 860 Method i 2020-08-07 2020-08-07 Outpatient NAVARRETE, [facility] [id number] 00:00:00 00:00:00 KARTHIK 675 Method i 2020-08-07 2020-08-07 Outpatient NAVARRETE, [facility] [id number] 00:00:00 00:00:00 KARTHIK 349 Method i 2020-08-06 2020-08-06 Outpatient NAVARRETE, [facility] [id number] 00:00:00 00:00:00 KARTHIK [address] 2020-08-05 2020-08-05 Outpatient LANDON, [facility] [id number] 00:00:00 00:00:00 KARTHIK [address] 2020-08-04 2020-08-04 Outpatient LANDON, [facility] [id number] 00:00:00 00:00:00 KARTHIK [address] 2020-07-31 2020-07-31 Outpatient LANDON, [facility] [id number] 00:00:00 00:00:00 KARTHIK [address] Results Test Description Test Time Test Comments Results Result [facility] e Comments - XR CYSTOURETHRO 2018-11-07 Name: BOO EWING VOIDING 11:41:00 [facility] [place] : 1955 Age/S: 63 / M [id number] Unit #: [id number] Loc: [place] [address] Phys: Kai Tamayo MD Acct: [id number] Dis Date: Status: REG CLI PHONE #: [phone] Exam Date: 11/07/2018 1110 FAX #: Reason: UNSP COMPLICATION OF PROCEDURE EXAMS: CPT: [id number] XR CYSTOURETHRO VOIDING 09010 Fluoro Time: 24 DAP (Gy m2): Air [...] MD PAGE 1 Signed Report Name: BOO EWING [place] : 1955 Age/S: 63 / M [id number] Unit #: [id number] Loc: [place] [address] Phys: Kai Tamayo MD Acct: [id number] Dis Date: Status: REG CLI PHONE #: [phone] Exam Date: 11/07/2018 1110 FAX #: Reason: UNSP COMPLICATION OF PROCEDURE EXAMS: CPT: [id number] XR CYSTOURETHRO VOIDING 98718 Fluoro Time: 24 DAP (Gy m2): Air Kerma (mGy): 17.95 (Continued) Technologist: Joni Romo, RT(R)(CT); ... Trnscb Date/Time: 11/07/2018 (1141) [email or web address] Orig Print D/T: S: 11/07/2018 (1144) PAGE 2 Signed Report - XR CHEST 1 V 2018-10-31 Name: BOO EWING 09:46:00 [facility] [place] : 1955 Age/S: 63 / M [id number] Unit #: [id number] Loc: [place] [address] Phys: Kai Tamayo MD Acct: [id number] Dis Date: Status: REG [facility] [place]ONE #: [phone] Exam Date: 10/31/2018 0933 FAX #: Reason: PRE-OP EXAMS: CPT: [id number] XR CHEST 1 V 94674 Fluoro Time: DAP (Gy m2): Air Kerma [...] MD PAGE 1 Signed Report Name: BOO EWING [place] : 1955 Age/S: 63 / M [id number] Unit #: [id number] Loc: [place] [address] Phys: Kai Tamayo MD Acct: [id number] Dis Date: Status: [place] [facility] [place]ONE #: [phone] Exam Date: 10/31/2018 0933 FAX #: Reason: PRE-OP EXAMS: CPT: [id number] XR CHEST 1 V 13440 Fluoro Time: DAP (Gy m2): Air Kerma (mGy): (Continued) Technologist: Harriet Neff, RT(R) Trnscb Date/Time: 10/31/2018 (0946) [email or web address] Orig Print D/T: S: 10/31/2018 (0949) PAGE 2 Signed Report
--- NOTE | 2021-12-06 10:51 | EDPHYS ---
Physician Documentation [facility] Name: Nic Ewing Age: 66 yrs Sex: Male : 1955 Arrival Date: 12/06/2021 Time: 10:28 Bed 9 Private MD: ED Physician Daniel Bray HPI: 12/06 10:45 This 66 yrs old Male presents to ER via Ambulatory with complaints of shingles. rn 10:45 The patient's rash thought to be caused by an unknown cause. The rash is located on the rn right neck. The rash can be described as erythematous, urticarial, vesicular. Onset: The symptoms/episode began/occurred 3 day(s) ago. Associated signs and symptoms: Pertinent positives: itching, Pain. Severity of symptoms: At their worst the symptoms were mild in the emergency department the symptoms are unchanged. The patient has not experienced similar symptoms in the past. The patient has not recently seen a physician. Pt reports itchy and slightly burning pain with rash to right side of neck, began a few days ago. No fever. No other symptoms. No rash elsewhere. . Historical: - Allergies: 10:35 No Known Allergies; ss - PMHx: 10:35 Hernia; ss - Immunization history:: Client reports receiving the 2nd dose of the Covid vaccine. - Social history:: Smoking status: Patient denies any tobacco usage or history of. - Family history:: not pertinent. - Hospitalizations: : No recent hospitalization is reported. ROS: 10:45 Constitutional: Negative for fever, chills, and weight loss, Cardiovascular: Negative rn for chest pain, palpitations, and edema, Respiratory: Negative for shortness of breath, cough, wheezing, and pleuritic chest pain, Abdomen/GI: Negative for abdominal pain, nausea, vomiting, diarrhea, and constipation, Skin: + burning rash to neck Exam: 10:45 Constitutional: This is a well developed, well nourished patient who is awake, alert, rn and in no acute distress. Cardiovascular: Regular rate and rhythm. No pulse deficits. Skin: Warm, dry, + right neck and upper chest with erythema and vesicular groupings in linear fashion. Does not cross midline. No fluctuance. No bullae. Vital Signs: 10:33 BP 139 / 90; Pulse 71; Resp 16; Temp 97.8(TE); Pulse Ox 100% on R/A; Weight 77.11 kg; ss Height 5 ft. 10 in. (177.80 cm); Pain 0/10; 10:33 Body Mass Index 24.39 (77.11 kg, 177.80 cm) ss MDM: 10:33 Patient medically screened. rn 10:45 Differential diagnosis: viral infection, shingles, dermatitis. Data reviewed: vital rn signs, nurses notes, and as a result, I will discharge patient. Counseling: I had a detailed discussion with the patient and/or guardian regarding: the historical points, exam findings, and any diagnostic results supporting the discharge/admit diagnosis, the need for outpatient follow up, to return to the emergency department if symptoms worsen or persist or if there are any questions or concerns that arise at home. Special discussion: I discussed with the patient/guardian in detail that at this point there is no indication for admission to the hospital. It is understood, however, that if the symptoms persist or worsen the patient needs to return immediately for re-evaluation. Administered Medications: No medications were administered Disposition Summary: 12/06/21 10:50 Discharge Ordered Location: Home rn Problem: new rn Symptoms: are unchanged rn Condition: Stable rn Diagnosis - Zoster without complications rn Followup: rn - With: Private Physician - When: As needed - Reason: Recheck today's complaints, Re-evaluation by your physician Discharge Instructions: - Discharge Summary Sheet rn - Shinsolitario rn Forms: - Medication Reconciliation Form rn - Thank You Letter rn - Antibiotic alternative financing specialist - Prescription Opioid Use rn Prescriptions: - valacyclovir 1 gram Oral tablet - take 1 tablet by ORAL route every 8 hours for 7 days; 21 tablet; Refills: 0, rn Product Selection Permitted - Medrol (Tu) 4 mg Oral Tablets, Dose Pack - take 1 tablet by ORAL route as directed - follow package instructions; 1 rn packet; Refills: 0, Product Selection Permitted Signatures: Daniel Bray MD MD rn Smirch, Shelby, RN RN
--- NOTE | 2021-12-06 10:51 | ER ---
Nurse's Notes [facility] Name: Nic Ewing Age: 66 yrs Sex: Male : 1955 Arrival Date: 12/06/2021 Time: 10:28 Bed 9 Private MD: Diagnosis: Zoster without complications Presentation: 12/06 10:33 Chief complaint: Patient states: Rash to R side of neck and chest that began . ss Pt believes it to be shingles. Coronavirus screen: Client denies travel out of the [place] in the last 14 days. Ebola Screen: Patient denies exposure to infectious person. Patient denies travel to an Ebola-affected area in the 21 days before illness onset. Initial Sepsis Screen: Does the patient meet any 2 criteria? No. Patient's initial sepsis screen is negative. Does the patient have a suspected source of infection? No. Patient's initial sepsis screen is negative. Risk Assessment: Do you want to hurt yourself or someone else? Patient reports no desire to harm self or others. Onset of symptoms was December 04, 2021. 10:33 Method Of Arrival: Ambulatory ss 10:33 Acuity: ALMA 5 ss Triage Assessment: 10:40 General: Appears in no apparent distress. comfortable, Behavior is calm, cooperative, mb8 appropriate for age. Historical: - Allergies: 10:35 No Known Allergies; ss - PMHx: 10:35 Hernia; ss - Immunization history:: Client reports receiving the 2nd dose of the Covid vaccine. - Social history:: Smoking status: Patient denies any tobacco usage or history of. - Family history:: not pertinent. - Hospitalizations: : No recent hospitalization is reported. Screenin:40 Abuse screen: Denies threats or abuse. Denies injuries from another. Nutritional mb8 screening: No deficits noted. Tuberculosis screening: No symptoms or risk factors identified. Fall Risk None identified. Assessment: 10:40 Pain: Complains of pain in neck Pain currently is 6 out of 10 on a pain scale. Quality mb8 of pain is described as burning. Vital Signs: 10:33 BP 139 / 90; Pulse 71; Resp 16; Temp 97.8(TE); Pulse Ox 100% on R/A; Weight 77.11 kg; ss Height 5 ft. 10 in. (177.80 cm); Pain 0/10; 10:33 Body Mass Index 24.39 (77.11 kg, 177.80 cm) ED Course: 10:28 Patient arrived in ED. as 10:33 Daniel Bray MD is Attending Physician. rn 10:35 Triage completed. ss 10:35 Arm band placed on right wrist. ss 10:40 Nic Montgomery, RN is Primary Nurse. mb8 10:40 Patient has correct armband on for positive identification. Bed in low position. Call mb8 light in reach. Side rails up X2. 10:40 No provider procedures requiring assistance completed. Patient did not have IV access mb8 during this emergency room visit. Administered Medications: No medications were administered Medication: 10:40 VIS not applicable for this client. mb8 Outcome: 10:50 Discharge ordered by . rn 11:02 Discharged to home ambulatory. mb8 11:02 Condition: stable 11:02 Discharge instructions given to patient, Instructed on discharge instructions, follow up and referral plans. medication usage, Demonstrated understanding of instructions, follow-up care, medications. 11:03 Patient left the ED. mb8 Signatures: Judi Nunez as Daniel Bray MD MD rn Smirch, Shelby, RN RN Nic Montgomery, MARICRUZ RN mb8
[2021-12-06 11:46] VITALS: BP 139/90; TEMP 97.8; O2SAT 100
== END 2021-12-06 11:03 | disposition home or self-care (01) ==
LOC: ER 10:26
DX: B02.9 Zoster without complications (principal)
CPT/HCPCS: 99281

== ENCOUNTER 2023-04-12 15:51 | Inpatient (IN) | payer OTHER, MEDICARE ==
[2023-04-12] MEDS ORDERED: METOPROLOL TARTRATE 5 MG/5 ML INJ IV ONE (16:15)
[2023-04-12] MEDS ORDERED: NA CHLORIDE 0.9% 500 ML ONE (16:15)
[2023-04-12] MEDS ORDERED: MAGNESIUM SULFATE 1 gm IVPB 1 GM/100 ML BAG IV ONE (16:15)
[2023-04-12 16:27] LABS: Absolute Lymphocytes (CBC) 0.7 K/uL (0.7-4.9); Hematocrit 32.8 % (39.6-49.0); Lymphocytes % 9.1 % (15.3-44.8); MCV 88.8 fL (80-100); MPV 7.7 fL (7.6-11.3); Platelets 263 thou/uL (152-406); RBC Red Blood Cell Count 3.69 M/uL (4.33-5.43)
[2023-04-12 16:32] LABS: Protime INR 1.28
[2023-04-12] MEDS ORDERED: SOTALOL HCL 80 MG TAB ONE (16:32)
[2023-04-12 16:46] LABS: Potassium 4.7 mEq/L (3.5-5.1); Troponin High Sensitivity 20.2 pg/mL (<58.9)
--- NOTE | 2023-04-12 17:02 | EDPHYS ---
Physician Documentation [facility] Name: Nic Ewing Age: 67 yrs Sex: Male : 1955 Arrival Date: 04/12/2023 Time: 15:51 Bed 6 Private MD: ED Physician Daniel Bray HPI: 04/12 16:55 This 67 yrs old Male presents to ER via Ambulatory with complaints of Chest Pressure, rn Palpitations, Dizziness. 16:55 The patient presents with a history of irregular heart beat, heart racing. Context: The rn symptoms occur at rest. Onset: The symptoms/episode began/occurred yesterday. Duration: The patient or guardian reports multiple episodes, that are intermittent. Modifying factors: The symptoms are aggravated by light activity, The symptoms are alleviated by nothing. Associated signs and symptoms: Pertinent positives: chest pain, lightheadedness, SOB, Pertinent negatives: syncope. Severity of symptoms: At their worst the symptoms were moderate in the emergency department the symptoms are unchanged. The patient has not experienced similar symptoms in the past. The patient has not recently seen a physician. Patient reports palpitations, irregular heartbeat, worse with exertion as he was putting up [employer] decorations. Began yesterday. Has known murmur and echo outpatient schedule for July 2023. Patient reports dizziness and lightheadedness since this has began. No history of arrhythmia. No medication changes.. Historical: - Allergies: 16:10 No Known Allergies; ll1 - PMHx: 16:04 Hernia; cm10 - Immunization history:: Adult Immunizations up to date. - Social history:: Smoking status: Patient denies any tobacco usage or history of. - Family history:: not pertinent. - Hospitalizations: : No recent hospitalization is reported. ROS: 16:55 Constitutional: Negative for fever, chills, and weight loss, Eyes: Negative for injury, rn pain, redness, and discharge, Cardiovascular: Positive for palpitations, intermittent chest pain Respiratory: Positive for shortness of breath with exertion Abdomen/GI: Negative for abdominal pain, nausea, vomiting, diarrhea, and constipation, MS/Extremity: Negative for injury and deformity, Skin: Negative for injury, rash, and discoloration, Neuro: Positive for dizziness and lightheadedness. Exam: 16:55 Constitutional: This is a well developed, well nourished patient who is awake, alert, rn and in no acute distress. Cardiovascular: Tachycardic, irregular rhythm. Loud crescendo murmur. Respiratory: No increased work of breathing, no retractions or nasal flaring. Abdomen/GI: Soft, non-tender Skin: Warm, dry MS/ Extremity: Pulses equal, no cyanosis. Neuro: Awake and alert, GCS 15 Vital Signs: 16:05 Pulse 128; jl7 16:10 BP 146 / 99; Pulse 83; Resp 18; Temp 98.4; Pulse Ox 100% on R/A; Weight 77.11 kg; ll1 Height 5 ft. 10 in. ; Pain 3/10; 16:41 BP 120 / 91; Pulse 103; Resp 15; Pulse Ox 100% ; jl7 16:10 Body Mass Index 24.39 (77.11 kg, 177.8 cm) ll1 16:10 Pain Scale: Adult ll1 MDM: 16:02 Patient medically screened. rn 16:55 Differential diagnosis: arrythmia, dehydration, stress disorder. Data reviewed: vital rn signs, nurses notes, lab test result(s), EKG, and as a result, I will admit patient. Consideration of Admission/Observation Patient was admitted/placed on observation. Escalation of care including admission/observation considered. Management of patient was discussed with the following: Hospitalist: Discussed case with hospitalist, will admit and see patient.. I considered the following discharge prescriptions or medication management in the emergency department Medications were administered in the Emergency Department. See MAR. Independent interpretation of the following test(s) in the Emergency Department EKG: See my EKG interpretation above X-Ray: My interpretation is Chest x-ray images negative for pneumothorax or pneumonia per my interpretation.. Counseling: I had a detailed discussion with the patient and/or guardian regarding the historical points, exam findings, and any diagnostic results supporting the discharge/admit diagnosis, the need for outpatient follow up, to return to the emergency department if symptoms worsen or persist or if there are any questions or concerns that arise at home. Special discussion: I discussed with the patient/guardian in detail that at this point there is no indication for admission to the hospital. It is understood, however, that if the symptoms persist or worsen the patient needs to return immediately for re-evaluation. 04/12 16:03 Order name: Basic Metabolic Panel; Complete Time: 16:49 rn 04/12 16:03 Order name: CBC with Diff; Complete Time: 16:49 rn 04/12 16:03 Order name: NT PRO-BNP; Complete Time: 16:49 rn 04/12 16:03 Order name: PT-INR; Complete Time: 16:49 rn 04/12 16:03 Order name: Troponin HS; Complete Time: 16:49 rn 04/13 04:54 Order name: CBC with Automated Diff; Complete Time: 10:16 EDMS 04/13 05:24 Order name: Basic Metabolic Panel; Complete Time: 10:16 EDMS 04/13 05:24 Order name: Lipid Profile; Complete Time: 10:16 EDMS 04/13 05:24 Order name: T4 Free; Complete Time: 10:16 EDMS 04/13 05:24 Order name: Magnesium; Complete Time: 10:16 EDMS 04/13 05:24 Order name: Thyroid Stimulating Hormone; Complete Time: 10:16 EDMS 04/13 08:56 Order name: T3 Free; Complete Time: 10:16 EDMS 04/12 16:03 Order name: XRAY Chest (1 view); Complete Time: 10:16 rn 04/13 08:07 Order name: US; Complete Time: 10:16 EDMS 04/12 16:03 Order name: EKG; Complete Time: 16:04 rn 04/12 16:03 Order name: Cardiac monitoring; Complete Time: 16:10 rn 04/12 16:03 Order name: EKG - Nurse/Tech; Complete Time: 16:20 rn 04/12 16:03 Order name: IV Saline Lock; Complete Time: 16:20 rn 04/12 16:03 Order name: Labs collected and sent; Complete Time: 16:20 rn 04/12 16:03 Order name: O2 Per Protocol; Complete Time: 16:10 rn 04/12 16:03 Order name: O2 Sat Monitoring; Complete Time: 16:11 rn Administered Medications: 06:20 Drug: NS 0.9% IV 500 ml IV at bolus once Route: IV; Rate: bolus; Site: right jl7 antecubital; 16:20 Drug: Metoprolol IVP 5 mg IVP once; Hold for SBP <100 or HR <60. Route: IVP; Site: jl7 right antecubital; 16:40 Follow up: Response: No adverse reaction; Cardiac rhythm changed jl7 16:24 Drug: Magnesium Sulfate IVPB 1 grams IVPB once over 1 hrs Route: IVPB; Infused Over: 1 jl7 hrs; Site: right antecubital; 16:40 Follow up: Response: No adverse reaction; IV Status: Completed infusion; IV Intake: jl7 100ml 16:40 Drug: Sotalol PO 80 mg PO once Route: PO; jl7 18:32 Drug: Enoxaparin Sub-Q 1 mg/kg Sub-Q once Route: Sub-Q; Site: abdomen; ko1 Disposition Summary: 04/12/23 17:01 Hospitalization Ordered Notes: Hospitalization Status: Observation rn Provider: Gregory Madsen rn Condition: Stable rn Problem: new rn Symptoms: have improved rn Bed/Room Type: Standard rn Location: Telemetry/MedSurg (observation)(04/13/23 11:29) em1 Room Assignment: [facility](04/13/23 11:29) em1 Diagnosis - Persistent atrial fibrillation - with rapid ventricular rate rn - Chest pain, unspecified rn - Dyspnea, unspecified rn Forms: - Medication Reconciliation Form rn - SBAR form rn - Leadership Thank You Letter rn Signatures: Dispatcher [employer] EDMS Daniel Bray MD MD rn Martinez, Eric em1 Kailyn Minor RN RN Vanessa De Anda RN RN [email or web address] Stefan Balderas, RN RN ll1 Cynthia De La Rosa, RN RN ko1 Nia Nunez RN RN cm10 Janice Sparks, RIB BUILDER RIB BUILDER cm12 Corrections: (The following items were deleted from the chart) 21:05 17:01 Telemetry/MedSurg (observation) rn 21:05 17:01 rn cg 04/13 11:29 04/12 21:05 [facility] [place] [facility] cg em1 04/13 11:04[facility]12 [facility]
--- NOTE | 2023-04-12 17:02 | ER ---
Nurse's Notes [facility] Name: Nic Ewing Age: 67 yrs Sex: Male : 1955 Arrival Date: 04/12/2023 Time: 15:51 Bed 6 Private MD: Diagnosis: Persistent atrial fibrillation-with rapid ventricular rate;Chest pain, unspecified;Dyspnea, unspecified Presentation: 04/12 16:10 Chief complaint: Patient states: Lightheaded, BRADFORD, CP, palpitations, fatigue for a few ll1 days. Coronavirus screen: Client denies travel out of the [place] in the last 14 days. At this time, the client does not indicate any symptoms associated with coronavirus-19. Ebola Screen: Patient denies travel to an Ebola-affected area in the 21 days before illness onset. Initial Sepsis Screen: Does the patient meet any 2 criteria? No. Patient's initial sepsis screen is negative. Does the patient have a suspected source of infection? No. Patient's initial sepsis screen is negative. Risk Assessment: Do you want to hurt yourself or someone else? Patient reports no desire to harm self or others. Onset of symptoms was April 10, 2023. 16:10 Method Of Arrival: Ambulatory ll1 16:10 Acuity: ALMA 2 ll1 Triage Assessment: 16:12 General: Appears uncomfortable, Behavior is calm, cooperative, appropriate for age. ll1 Pain: Complains of pain in L sided BRADFORD Quality of pain is described as aching. Neuro: Reports dizziness, headache weakness. Cardiovascular: Reports chest pain, fatigue, lightheadedness, shortness of breath. Respiratory: Reports shortness of breath on exertion. Historical: - Allergies: 16:10 No Known Allergies; ll1 - PMHx: 16:04 Hernia; cm10 - Immunization history:: Adult Immunizations up to date. - Social history:: Smoking status: Patient denies any tobacco usage or history of. - Family history:: not pertinent. - Hospitalizations: : No recent hospitalization is reported. Screenin:41 [facility] ED Fall Risk Assessment (Adult) Score/Fall Risk Level 0 - 2 = Low Risk jl7 Oriented to surroundings, Maintained a safe environment. Abuse screen: Denies threats or abuse. Denies injuries from another. Nutritional screening: No deficits noted. Tuberculosis screening: No symptoms or risk factors identified. Assessment: 17:05 General: Appears in no apparent distress. uncomfortable, Behavior is calm, cooperative, ko1 appropriate for age. Pain: Pain does not radiate. Pain began gradually. Neuro: No deficits noted. Cardiovascular: Reports lightheadedness, palpitations, chest pressure. Respiratory: No deficits noted. GI: No signs and/or symptoms were reported involving the gastrointestinal system. : No deficits noted. EENT: No deficits noted. Derm: No deficits noted. Musculoskeletal: No deficits noted. Vital Signs: 16:05 Pulse 128; jl7 16:10 BP 146 / 99; Pulse 83; Resp 18; Temp 98.4; Pulse Ox 100% on R/A; Weight 77.11 kg; ll1 Height 5 ft. 10 in. ; Pain 3/10; 16:41 BP 120 / 91; Pulse 103; Resp 15; Pulse Ox 100% ; jl7 16:10 Body Mass Index 24.39 (77.11 kg, 177.8 cm) ll1 16:10 Pain Scale: Adult ll1 ED Course: 15:53 Patient arrived in ED. im 16:02 Daniel Bray MD is Attending Physician. rn 16:04 Arm band placed on Patient placed in an exam room, on a stretcher. cm10 16:09 Vanessa Ford, MARICRUZ is Primary Nurse. jl7 16:10 Initial lab(s) drawn, by ED staff, sent to lab. Inserted saline lock: 20 gauge in right jl7 antecubital area, using aseptic technique. Blood collected. Patient maintains SpO2 saturation greater than 95% on room air. 16:12 Triage completed. ll1 16:20 Basic Metabolic Panel Sent. ko1 16:20 CBC with Diff Sent. ko1 16:20 NT PRO-BNP Sent. ko1 16:20 PT-INR Sent. ko1 16:20 Troponin HS Sent. ko1 16:23 Patient has correct armband on for positive identification. Provided Education on: use jl7 of callbell. Client placed on continuous cardiac and pulse oximetry monitoring. NIBP monitoring applied. 16:36 XRAY Chest (1 view) In Process Unspecified. EDMS 17:01 Gregory Madsen is Hospitalizing Provider. rn 04/13 12:19 No provider procedures requiring assistance completed. Patient admitted, IV remains in ld1 place. Administered Medications: 04/12 06:20 Drug: NS 0.9% IV 500 ml IV at bolus once Route: IV; Rate: bolus; Site: right jl7 antecubital; 16:20 Drug: Metoprolol IVP 5 mg IVP once; Hold for SBP <100 or HR <60. Route: IVP; Site: jl7 right antecubital; 16:40 Follow up: Response: No adverse reaction; Cardiac rhythm changed jl7 16:24 Drug: Magnesium Sulfate IVPB 1 grams IVPB once over 1 hrs Route: IVPB; Infused Over: 1 jl7 hrs; Site: right antecubital; 16:40 Follow up: Response: No adverse reaction; IV Status: Completed infusion; IV Intake: jl7 100ml 16:40 Drug: Sotalol PO 80 mg PO once Route: PO; jl7 18:32 Drug: Enoxaparin Sub-Q 1 mg/kg Sub-Q once Route: Sub-Q; Site: abdomen; ko Medication: 16:41 VIS not applicable for this client. jl7 Intake: 16:40 IV: 100ml; Total: 100ml. [facility] Outcome: 17:01 Decision to Hospitalize by Provider. rn 04/13 12:20 Admitted to Med/surg accompanied by tech, via wheelchair, room 207, Report called to ld1 MARICRUZ Juarez Condition: stable 12:57 Patient left the ED. ld1 Signatures: Dispatcher [employer] EDMS Daniel Bray MD MD rn Leal, Jahala RN RN jl7 Stefan Balderas RN RN [email or web address] Natalie Oliveros RN RN [email or web address] Cynthia De La Rosa RN RN Tessa Frye Clarissa RN RN cm10
--- NOTE | 2023-04-12 17:34 | P.HP ---
Certification for Inpatient Patient admitted to: Inpatient With expected LOS: >2 Midnights Patient will require the following post-hospital care: None Practitioner: I am a practitioner with admitting privileges, knowledge of patient current condition, hospital course, and medical plan of care. Services: Services provided to patient in accordance with Admission requirements found in Title 42 Section 412.3 of the Code of Federal Regulations Patient History Date of Service: 04/12/23 Reason for admission: New onset A-fib History of Present Illness: 67-year-old male with history of hypertension, CKD 4 presents to the emergency department chief complaint of palpitations, shortness of breath with exertion. He reports the symptoms have been ongoing for the last 2 to 3 days. Upon arrival to the emergency department patient was noted to be in A-fib with a rate in the 120s, normotensive. No known history of atrial fibrillation. In the ER he was given IV Lopressor followed by dose of oral sotalol 80 mg, rate has improved currently A-fib 90-100. Other labs are significant for hemoglobin 11.4 hematocrit 32.8 creatinine 3.07 GFR 21 BNP 3501, patient reports his GFR typically is around 24. ED provider wishes to admit for new onset A-fib RVR, MERISSA. - Past Medical/Surgical History -: CKD 4 -: Hypertension -: Hernia repair, bladder repair Psychosocial/ Personal History: Lives at home with his , is retired - Family History Father -: Heart disease, Diabetes Brother -: Heart disease - Social History Smoking Status: Never smoker Alcohol use: Yes CD- Drugs: No Caffeine use: Yes Place of Residence: Home Review of Systems 10-point ROS is otherwise unremarkable Respiratory: SOB with Excertion Cardiovascular: Palpitations Physical Examination - Physical Exam General: Alert, In no apparent distress, Oriented x3 HEENT: Atraumatic, PERRLA, Mucous membr. moist/pink Neck: Supple, 2+ carotid pulse no bruit, No LAD Respiratory: Clear to auscultation bilaterally, Normal air movement Cardiovascular: Normal S1 S2, Irregular heart rate/rhythm (A-fib rate 100), Systolic murmur Gastrointestinal: Normal bowel sounds, No tenderness Musculoskeletal: No tenderness Integumentary: No rashes Neurological: Normal speech, Normal strength at 5/5 x4 extr, Normal tone, Normal affect - Studies Laboratory Data (last 24 hrs) 0104/12/23 04/12/23 16:15 16:15 16:15 WBC 7.80 Hgb 11.4 L Hct 32.8 L Plt Count 263 PT 14.0 H INR 1.28 Sodium 137 Potassium 4.7 BUN 57 H Creatinine 3.07 H Glucose 101 Assessment and Plan - Plan Assessment: New onset atrial fibrillation with rapid ventricular response MERISSA on CKD 4 Hypertension Plan: New onset atrial fibrillation with rapid ventricular response Patient takes carvedilol 3.125 once daily at home Will avoid sotalol given CKD 4, increase carvedilol dosing for now Cardiology consultation, echocardiogram ordered will monitor on telemetry Obtain thyroid panel, does have obstructive sleep apnea and was unable to tolerate CPAP for last 3 months Moderate caffeine consumption Systolic murmur noted-patient aware of this murmur, echo ordered [id number] 2 score is 2 given age, history of hypertension warranting anticoagulation-Eliquis ordered MERISSA on CKD 4 Continue gentle IV fluids overnight Nephrology consult Hypertension Continue medications DVT PPX: Eliquis Code status: Full Discharge Plan: Home Plan to discharge in: 48 Hours - Advance Directives Does patient have a Living Will: No Does patient have a Durable POA for Healthcare: No - Code Status/Comfort Care Code Status Assessed: Yes (Full code) Critical Care: No Time Spent Managing Pts Care (In Minutes): 70
--- NOTE | 2023-04-12 17:45 | RAD REPORT ---
EXAM DESCRIPTION: Neela Single View04/12/2023 4:34 pm CLINICAL HISTORY: Chest pain COMPARISON: 2019 FINDINGS: The lungs appear clear of acute infiltrate. The heart is normal size IMPRESSION: No acute abnormalities displayed
[2023-04-12] MEDS ORDERED: ENOXAPARIN 80 MG/0.8 ML SQ ONE (18:29)
[2023-04-12] MEDS: NA CHLORIDE 0.9% 1,000 ML IV SCH (19:16)
[2023-04-12] MEDS ORDERED: ONDANSETRON 4 MG/2 ML VIAL IV PRN (19:16)
[2023-04-12] MEDS ORDERED: NA CHLORIDE 0.9% 1,000 ML ONE (20:26)
[2023-04-13 04:52] LABS: Absolute Lymphocytes (CBC) 0.9 K/uL (0.7-4.9); Hematocrit 30.1 % (39.6-49.0); Lymphocytes % 12.7 % (15.3-44.8); MCV 88.8 fL (80-100); MPV 8.3 fL (7.6-11.3); Platelets 264 thou/uL (152-406); RBC Red Blood Cell Count 3.39 M/uL (4.33-5.43)
[2023-04-13 05:20] LABS: BUN Blood Urea Nitrogen 50 mg/dL (7-18); Bicarbonate 27 mEq/L (21-32); Glomerular Filtration Rate 24 ml/min (=/>90); Glucose Level 96 mg/dL (74-106); HDL Cholesterol 38 mg/dL (40-60); LDL Cholesterol, Calculated 41 mg/dL (<130); Magnesium 2.2 mg/dL (1.6-2.4); Potassium 4.6 mEq/L (3.5-5.1); Sodium Level 141 mEq/L (136-145)
[2023-04-13 05:24] LABS: Thyroid Stimulating Hormone < 0.005 uIU/mL (0.358-3.740)
--- NOTE | 2023-04-13 08:07 | RAD REPORT ---
EXAM DESCRIPTION: US - Thyroid Para Parotid Gland - 04/13/2023 7:43 am CLINICAL HISTORY: Hyperthyroid COMPARISON: No comparisons FINDINGS: The isthmus of the thyroid measures 5 mm. The right lobe of the thyroid measures 4.4 x 2.2 x 2.1 cm. Gland parenchyma is heterogenous. Vague hy poechoic nodule may be present posteriorly measuring 11 mm. The left lobe of the thyroid measures 3.8 x 2.1 x 1.7 cm. Gland parenchyma is heterogenous. 10 mm nod ule is present anterior laterally. IMPRESSION: Thyroid gland appears mildly prominent in size with a diffuse fatty heterogenous thyroid parenchyma. Bilateral nodules are present without suspicious features.
[2023-04-13] MEDS ORDERED: carvediloL 6.25 MG TAB PO SCH (09:00)
[2023-04-13] MEDS: APIXABAN 5 MG TABLET PO SCH (09:00)
[2023-04-13] MEDS: ASPIRIN EC 81 MG TAB PO SCH ×2 (09:00→13:06)
[2023-04-13] MEDS: DILTIAZEM HCL 60 MG TAB PO SCH ×2 (09:00→17:04)
--- NOTE | 2023-04-13 10:40 | P.PN ---
Date of Service: 04/13/23 Subjective: Still A-fib rate around 110 Denies any other complaints ROS: 10 point ROS as noted above, otherwise negative Physical exam GEN: Alert, oriented, NAD HEENT: Normal conjunctiva, sclera anicteric CV: A-fib rate around 110, no edema Pulm: Nonlabored respirations on room air ABD: Soft, nontender, nondistended MSK: No joint tenderness Integumentary: No rashes Neuro: Normal speech, normal affect Vitals reviewed Assessment: New onset atrial fibrillation with rapid ventricular response Hyperthyroidism MERISSA on CKD 4 Hypertension Plan: New onset atrial fibrillation with rapid ventricular response Patient takes carvedilol 3.125 once daily at home Will avoid sotalol given CKD 4 Discussed with cardiology recommendation for Cardizem 30 mg by mouth every 6 hours Cardiology consultation, echocardiogram ordered will monitor on telemetry Thyroid panel notable for hyperthyroidism does have obstructive sleep apnea and was unable to tolerate CPAP for last 3 months Moderate caffeine consumption Systolic murmur noted-patient aware of this murmur, echo ordered [id number] 2 score is 2 given age, history of hypertension warranting anticoagulation-Eliquis ordered MERISSA on CKD 4 Continue gentle IV fluids overnight Nephrology consult Hyperthyroidism TSH less than 0.005 Free T43.29 Free T36.71 Ultrasound ordered Hypertension Continue medications DVT PPX: Eliquis Code status: Full Discharge Plan: Home Plan to discharge in: 24 to 48 hours Time Spent Managing Pts Care (In Minutes): 35
[2023-04-14 06:00] VITALS: BMI 38.3
[2023-04-14 06:47] LABS: Absolute Lymphocytes (CBC) 0.7 K/uL (0.7-4.9); Hematocrit 29.6 % (39.6-49.0); MCV 88.7 fL (80-100); Platelets 239 thou/uL (152-406); RBC Red Blood Cell Count 3.34 M/uL (4.33-5.43)
[2023-04-14 07:04] LABS: Magnesium 1.7 mg/dL (1.6-2.4); Potassium 4.4 mEq/L (3.5-5.1)
--- NOTE | 2023-04-14 07:27 | ECHO ---
HEIGHT: 5 ft 10 in WEIGHT: 267 lb 8 oz DATE OF STUDY: 04/13/[address]: Dominic Juarez NP 2-DIMENSIONAL: YES M.MODE: YES DOPPLER: YES COLOR FLOW: YES TDS: NO PORTABLE: YES DEFINITY: NO BUBBLE STUDY: NO DIAGNOSIS: MURMUR, NEW ONSET OF ATRIAL FIBRILLATION CARDIAC HISTORY: CATHERIZATION: SURGERY: PROSTHETIC VALVE: PACEMAKER: MEASUREMENTS (cm) DIASTOLIC (NORMALS) SYSTOLIC (NORMALS) IVSd 1.0 (0.6-1.2) LA Diam 3.8 (1.9-4.0) LVEF 69% LVIDd 5.4 (3.5-5.7) LVIDs 3.3 (2.0-3.5) %FS 39% LVPWd 1.0 (0.6-1.2) Ao Diam 3.1 (2.0-3.7) 2 DIMENSIONAL ASSESSMENT: RIGHT ATRIUM: NORMAL LEFT ATRIUM: ENLARGED RIGHT VENTRICLE: NORMAL LEFT VENTRICLE: NORMAL TRICUSPID VALVE: MILD TRICUSPID REGURGITATION MITRAL VALVE: SEVERE MITRAL REGURGITATION PULMONIC VALVE: NORMAL AORTIC VALVE: MODERATE AORTIC STENOSIS PERICARDIAL EFFUSION: NONE AORTIC ROOT: NORMAL LEFT VENTRICULAR WALL MOTION: NORMAL DOPPLER/COLOR FLOW: SEE BELOW COMMENTS: 1. NORMAL LEFT VENTRICULAR EJECTION FRACTION >60% WITH NORMAL WALL MOTION. 2. FLAIL POSTERIOR LEAFLET OF MITRAL VALVE WITH SEVERE MITRAL REGURGITATION. 3. MODERATE AORTIC STENOSIS. 4. LEFT ATRIAL ENLARGEMENT. TECHNOLOGIST: Brendan KWONG
[2023-04-14] MEDS: carvediloL 3.125 MG TAB PO SCH (08:10)
--- NOTE | 2023-04-14 09:42 | P.PN ---
Date of Service: 04/14/23 Subjective: Still A-fib rate around 110 Denies any other complaints Anticipate heart cath today ROS: 10 point ROS as noted above, otherwise negative Physical exam GEN: Alert, oriented, NAD HEENT: Normal conjunctiva, sclera anicteric CV: A-fib rate around 110, no edema Pulm: Nonlabored respirations on room air ABD: Soft, nontender, nondistended MSK: No joint tenderness Integumentary: No rashes Neuro: Normal speech, normal affect Vitals reviewed Assessment: Severe mitral regurgitation with flail valve New onset atrial fibrillation with rapid ventricular response Hyperthyroidism MERISSA on CKD 4 Hypertension Plan: Severe mitral regurgitation with flail valve Plan for heart catheterization today Cardiology recommends transfer for valve repair/replacement Await further recommendations from cardiology New onset atrial fibrillation with rapid ventricular response cardizem increased to 60 mg by mouth every 6 hours Patient takes carvedilol 3.125 once daily at home Monitor on telemetry Thyroid panel notable for hyperthyroidism does have obstructive sleep apnea and was unable to tolerate CPAP for last 3 months Moderate caffeine consumption Systolic murmur noted [id number] 2 score is 2 given age, history of hypertension warranting anticoagulation-Eliquis ordered-on hold for heart catheterization/possible need for valve replacement MERISSA on CKD 4 Continue gentle IV fluids overnight Nephrology consult Hyperthyroidism TSH less than 0.005 Free T43.29 Free T36.71 Ultrasound completed Thyroid antibody tests ordered Hypertension Continue medications DVT PPX: Lovenox Code status: Full Discharge Plan: Home Plan to discharge in: 48 to 72 hours Likely transfer for valve repair/replacement Time Spent Managing Pts Care (In Minutes): 35
[2023-04-14] MEDS ORDERED: HEPA 1000U/500MLS 2,000 UNIT/1,000 ML BAG IV ONE (14:59)
[2023-04-14] MEDS ORDERED: MIDAZOLAM HCL 2 MG/2 ML INJ ONE (15:00)
[2023-04-14] MEDS ORDERED: FENTANYL CITR 100 MCG/2 ML ONE (15:00)
[2023-04-14] MEDS ORDERED: VERAPAMIL HCL 10 MG/4 ML VIAL IV ONE (15:00)
[2023-04-14] MEDS ORDERED: ATROPINE SULF 1 MG/10 ML SYR IV ONE (15:01)
[2023-04-14] MEDS ORDERED: TICAGRELOR 90 MG TABLET PO ONE (15:01)
[2023-04-14] MEDS ORDERED: HEPARIN 10,000 UNIT/10 ML VIAL IV ONE (15:01)
[2023-04-14] MEDS ORDERED: CLOPIDOGREL 75 MG TABLET ONE (15:01)
[2023-04-14] MEDS ORDERED: HEPARIN 5000 UNIT/ML 1 ML VIAL ONE (15:01)
[2023-04-14] MEDS ORDERED: ASPIRIN 325 MG TAB ONE (15:02)
[2023-04-14] MEDS ORDERED: LIDOCAINE 1% 20 ML MDV ONE (15:02)
[2023-04-14] MEDS ORDERED: NA CHLORIDE 0.9% 500 ML ONE (15:12)
[2023-04-14 17:36] VITALS: O2SAT 99
--- NOTE | 2023-04-14 19:42 | P.DS ---
Admission Date: 04/12/23 Discharge Date: 04/14/23 Disposition: AMA-LEFT AGAINST MEDICAL ADVIC Discharge Condition: FAIR Reason for Admission: New onset A-fib Consultations: Cardiology-Dr. Arrington Procedures: Left heart cath 04/14/23- see full report for details no intervention needed Brief History of Present Illness: 67-year-old male with history of hypertension, CKD 4 presents to the emergency department chief complaint of palpitations, shortness of breath with exertion. He reports the symptoms have been ongoing for the last 2 to 3 days. Upon arrival to the emergency department patient was noted to be in A-fib with a rate in the 120s, normotensive. No known history of atrial fibrillation. In the ER he was given IV Lopressor followed by dose of oral sotalol 80 mg, rate has improved currently A-fib 90-100. Other labs are significant for hemoglobin 11.4 hematocrit 32.8 creatinine 3.07 GFR 21 BNP 3501, patient reports his GFR typically is around 24. ED provider wishes to admit for new onset A-fib RVR, MERISSA. Hospital Course: Patient was admitted to the hospital with new onset afib, during his hospitalization he was found to have hyperthyroidism and severe mitral valve regurgitation with flail posterior leaflet of the mitral valve. He was evaluated by cardiology who recommended patient undergo left heart cath followed by transfer to another acute care facility for repair or replacement of mitral valve. After left heart cath was performed patient stated he wished to leave for a second opinion. Multiple times during hospitalization it was discussed that leaving the hospital before having his valve repaired could lead to irreversible damage to his heart. I discussed with him prior to leaving the urgency of the situation and need for very urgent follow up. Patient stated he had a plan for close follow up before the end of the week. Patient elected to leave the hospital AMA to seek second opinion. Vital Signs/Physical Exam: Temp Pulse Resp BP Pulse Ox 98.8 F 100 H 15 138/77 98 04/14/23 12:00 04/14/23 18:40 04/14/23 18:40 04/14/23 18:40 04/14/23 12:00 Laboratory Data at Discharge: WBC 8.30 thou/uL (4.3-10.9) 04/14/23 06:30 Hgb 10.4 g/dL (13.6-17.9) L 04/14/23 06:30 Hct 29.6 % (39.6-49.0) L 04/14/23 06:30 Plt Count 239 thou/uL (152-406) 04/14/23 06:30 PT 14.0 SECONDS (9.5-12.5) H 04/12/23 16:15 INR 1.28 04/12/23 16:15 Sodium 139 mEq/L (136-145) 04/14/23 06:30 Potassium 4.4 mEq/L (3.5-5.1) 04/14/23 06:30 BUN 43 mg/dL (7-18) H 04/14/23 06:30 Creatinine 2.69 mg/dL (0.70-1.30) H 04/14/23 06:30 Glucose 94 mg/dL (74-106) 04/14/23 06:30 Magnesium 1.7 mg/dL (1.6-2.4) 04/14/23 06:30 Triglycerides 62 mg/dL (<150) 04/13/23 04:10 Cholesterol 91 mg/dL (<200) 04/13/23 04:10 HDL Cholesterol 38 mg/dL (40-60) L 04/13/23 04:10 Cholesterol/HDL Ratio 2.39 04/13/23 04:10 Home Medications: Amlodipine [Norvasc*] 1 tab PO DAILY 04/12/23 Carvedilol [Coreg] 1 tab PO DAILY 04/12/23 Physician Discharge Instructions: Please seek additional care as soon as possible Diet: AHA Followup: RUBY BELTRAN [Primary Care Provider] - 1-2 Days Time spent managing pt's care (in minutes): 30
[2023-04-14 19:49] VITALS: BP 113/83; TEMP 97.5
--- NOTE | 2023-04-16 13:52 | EKG ---
Test Date: 2023-04-12 Test Time: 16:11:08 Environmental Remediation Consultant: LEN MEASUREMENT RESULTS: Intervals: Rate: 128 UT: QRSD: 84 QT: 268 QTc: 391 [place]: P: UT: QRS: 51 T: 64 INTERPRETIVE STATEMENTS: Atrial fibrillation with rapid ventricular response with premature ventricular or aberrantly conducted complexes Abnormal ECG Compared to ECG 07/01/2019 14:26:15 Ventricular premature complex(es) now present Sinus rhythm no longer present Electronically Signed On 04-16-23 13:43:34 [employer] OPER[employer] HELPER by Jaime Arrington
== END 2023-04-14 19:55 | disposition left against medical advice (07) | DRG 287 ==
LOC: ER 15:51 → ERHOLD 17:26 → 4TH 04-13 12:20
PROVIDERS: ADMIT Internal Medicine; ATTEND Hospitalist
PROC: B2111ZZ Fluoroscopy of Multiple Coronary Arteries using Low Osmolar Contrast (ICD-10-PCS; principal; 2023-04-14)
DX: I48.19 Other persistent atrial fibrillation (principal); N17.9 Acute kidney failure, unspecified; N18.4 Chronic kidney disease, stage 4 (severe); Z79.01 Long term (current) use of anticoagulants; I12.9 Hypertensive chronic kidney disease with stage 1 through stage 4 chronic kidney disease, or unspecified chronic kidney disease; I34.0 Nonrheumatic mitral (valve) insufficiency; E03.9 Hypothyroidism, unspecified
CPT/HCPCS: 36415; 71045; 76536; 76937; 80048; 80061; 83735; 83880; 84439; 84443; 84481; 84484; 85025; 85610; 86376; 86800; 93005; 93306; 93458; 96365; 96372; 96375; 99152; 99153; 99285; C1893; J0461; J1644; J2001; J2250; J3010; J3475; J7030; J7040; Q9966